=== PATIENT | female | born 1945 | race Caucasian/White ===

== ENCOUNTER 2016-08-23 07:00 | Emergency (ER) | payer MEDICARE ==
[2016-08-23] MEDS ORDERED: NORCO 5/325 MG PO ONE (07:29)
[2016-08-23] MEDS ORDERED: NORCO 5/325 MG ONE (07:33)
--- NOTE | 2016-08-23 07:33 | ERPHSYRPT ---
- History of Present Illness Time Seen by Provider: 08/23/16 07:25 Source: patient Patient Subjective Stated Complaint: pt states at 0530 she fell this morning in bathroom. pt c/o pain to left distal humerus and shoulder. pt denies any other injuries. Triage Nursing Assessment: pt pink, warm, dry. pt ambulated into ER without difficulty. bruise noted to left anterior upper arm. radial pulses strong. Physician History: CC: left arm pain Hx: 71 y/o pt of Dr Harsh Castellano fell this am around 5:30. She has periodic dizzy spells for quite some time. No blood thinners. She fell in the bathroom rushing to toilet. She hurt left shoulder and left upper arm. Bumped her cheek. No neck or back pain. No LOC. No headache. No N/T/W. The dizzy spell was typical for her. Pain is moderate and worse with movement. Timing/Duration: today Allergies/Adverse Reactions: latex Allergy (Mild, Verified 08/23/16 07:18) Itching adhesive Allergy (Verified 08/23/16 07:18) Rash ciprofloxacin [From Cipro] Allergy (Verified 08/23/16 07:18) codeine [Codeine] Allergy (Verified 08/23/16 07:18) stop breathing iodine Allergy (Verified 08/23/16 07:18) Home Medications: Albuterol 2.5 mg/3 ml Neb [Proventil 2.5 mg/3 ml Neb] 2.5 mg IH QID [History] Insulin Lispro [Humalog] 4 unit SQ TID 07/18/13 [History] Multivitamins,Therapeutic Tab* [Theragran Multivitamin] 1 tab PO DAILY [History] Prednisone 10 mg [Deltasone 10 mg] 10 mg PO DAILY 07/18/13 [History] Calcium Carb & Citrate/Vit D3 [Calcium + Vitamin D3 Caplet] 2 each PO DAILY [History] PANTOPRAZOLE 40 mg Tablet [Protonix 40MG Tablet] 40 mg PO DAILY 10/22/14 [ History] Lisinopril 10 mg [Zestril 10 MG] 10 mg PO DAILY 04/24/15 [History] Citalopram Hydrobromide 20 mg* [ceLEXa 20 MG] 5 mg PO DAILY 07/07/16 [History ] Hx Tetanus, Diphtheria Vaccination/Date Given: Yes (up to date) Hx Influenza Vaccination/Date Given: Yes Hx Pneumococcal Vaccination/Date Given: Yes Immunizations Up to Date: Yes - Review of Systems Constitutional: No Symptoms Eyes: No Symptoms Ears, Nose, & Throat: No Symptoms Respiratory: No Dyspnea Cardiac: No Chest Pain, No Syncope Abdominal/Gastrointestinal: No Abdominal Pain, No Nausea, No Vomiting Musculoskeletal: Fall, Injury (left upper arm), No Back Pain, No Neck Pain Neurological: Dizziness (periodic), No Focal Weakness, No Headache, No Parasthesia All Other Systems: Reviewed and Negative - Past Medical History Pertinent Past Medical History: Yes Neurological History: No Pertinent History ENT History: Other Cardiac History: Hypertension Respiratory History: COPD Endocrine Medical History: Diabetes Type I Musculoskeletal History: Arthritis, Bone Cancer, Other GI Medical History: Hernia History: Other Psycho-Social History: Anxiety, Depression Female Reproductive Disorders: No Pertinent History Other Medical History: Bone cancer - Past Surgical History Past Surgical History: Yes Neuro Surgical History: No Pertinent History Cardiac: No Pertinent History Respiratory: Lobectomy, Other Gastrointestinal: Appendectomy, Cholecystectomy Genitourinary: No Pertinent History Musculoskeletal: Other Female Surgical History: Tubal Ligation Other Surgical History: cyst on finger, ribs removed and kyphoplasty, vein stripping on left leg - Social History Smoking Status: Former smoker How long have you smoked: 42years Exposure to second hand smoke: No Drug Use: none Patient Lives Alone: No - Female History Hx Now: No - Nursing Vital Signs Nursing Vital Signs: Initial Vital Signs Temperature 98.5 F Temperature Source Oral Pulse Rate 73 Respiratory Rate 18 Blood Pressure 144/76 Pain Intensity 8 - Physical Exam General Appearance: alert Eye Exam: PERRL/EOMI Ears, Nose, Throat Exam: normal ENT inspection, moist mucous membranes, other ( small contusion left cheek without bony tenderness) Neck Exam: normal inspection, non-tender, supple, No midline tenderness Respiratory Exam: normal breath sounds, lungs clear Cardiovascular Exam: regular rate/rhythm, No murmur Gastrointestinal/Abdomen Exam: soft, No tenderness, No distention Back Exam: No vertebral tenderness Extremity Exam: tenderness (left shoulder and upper arm) Neurologic Exam: alert, oriented x 3, cooperative, sensation nml, No motor deficits Skin Exam: warm, dry, No rash SpO2 Interpretation: normal SpO2: 99 Oxygen Delivery: Nasal Cannula - Course Nursing assessment & vital signs reviewed: Yes - Radiology Exams left shoulder and humerus X-ray Interpretation: Reviewed by me, No Fracture, No Subluxation Ordered Tests: Active Orders 24 hr Category Date Time Status ACCUCHECK [Accucheck] STAT Care 08/23/16 08:12 Active Cold Application STAT Care 08/23/16 07:29 Active Sling Application STAT Care 08/23/16 07:29 Active HUMERUS Stat Exams 08/23/16 07:29 Taken SHOULDER Stat Exams 08/23/16 07:29 Taken Medication Summary Discontinued Medications Generic Name Dose Route Start Last Admin Trade Name Marcos PRN Reason Stop Dose Admin Acetaminophen/Hydrocodone Bitart 1 tab 08/23/16 07:29 08/23/16 07:39 [place] 5/325 Mg PO 08/23/16 07:30 1 tab STAT ONE Administration Acetaminophen/Hydrocodone Bitart Confirm 08/23/16 07:33 [place] 5/325 Mg Administered 08/23/16 07:34 Dose 1 tab .ROUTE .STK-MED ONE - Progress Progress Note: 08/23/16 08:11 No apparent fx. Will give short term sling and advise follow up. 08/23/16 08:15 Warned against long term care social worker sling. She has norco and ultram at home for pain. Counseled pt/family regarding: diagnosis, need for follow-up, rad results - Departure Time of Disposition: 08:16 Departure Disposition: Home Clinical Impression: Contusion of left shoulder Qualifiers: Encounter type: initial encounter Qualified Code(s): S40.012A - Contusion of left shoulder, initial encounter Condition: Stable Critical Care Time: No Referrals: RAJEEV CASTELLANO [Primary Care Provider] - Instructions: Prevent Falls, Contusion Additional Instructions: Use arm sling for 1-2 days. Follow up Wednesday with Dr Castellano. Use your ultram or norco as already directed for pain. Return for problems or concerns.
[2016-08-23 08:08] VITALS: BP 144/76; PULSE 73
[2016-08-23 08:12] VITALS: O2SAT 99
--- NOTE | 2016-08-23 09:23 | XRAY ---
Indication: Pain following fall. Comparison: August 12, 2016 3 views of the left shoulder unchanged again demonstrating mild osteopenia, minimal AC degenerative arthropathy, and partially visualized left Port-A-Cath. No new/acute abnormalities.
--- NOTE | 2016-08-23 09:25 | XRAY ---
Indication: Pain following fall. Comparison: August 12, 2016 2 views of the left humerus unchanged and intact again demonstrating mild osteopenia and partially visualized left Port-A-Cath. No new/acute abnormalities.
== END 2016-08-23 08:20 | disposition home or self-care (01) ==
LOC: ED 07:00
DX: S40.012A Contusion of left shoulder, initial encounter (principal); W01.0XXA Fall on same level from slipping, tripping and stumbling without subsequent striking against object, initial encounter; Y92.012 Bathroom of single-family (private) house as the place of occurrence of the external cause; E10.9 Type 1 diabetes mellitus without complications; I10 Essential (primary) hypertension; J44.9 Chronic obstructive pulmonary disease, unspecified
CPT/HCPCS: 73030; 73060; 82962; 99283

== ENCOUNTER 2016-09-01 16:39 | Emergency (ER) | payer MEDICARE ==
[2016-09-01] MEDS ORDERED: ULTRAM 50 MG PO ONE (17:31)
--- NOTE | 2016-09-01 17:38 | ERPHSYRPT ---
- History of Present Illness Time Seen by Provider: 09/01/16 17:30 Source: patient Exam Limitations: clinical condition Patient Subjective Stated Complaint: RIGHT SHOULDER/ARM PAIN, NECK PAIN. PT FELL WEDNESDAY AND CAME INTO THE ER. PT STATED"I AM DOING WHAT THEY TOLD ME TO DO BUT IT IS NOT HELPING I AM STILL IN PAIN." Triage Nursing Assessment: ALERT X 3. RESPIRATIONS NORMAL/NONLABORED, HAND LIBRARIAN SPECIALIST WEAK BUT EQUAL. LIMITED RANGE OF MOTION OF THE NECK TOWARDS THE LEFT SIDE AND LOOKING DOWN. LIMITED RANGE OF MOTION TO THE LEFT ARM. Physician History: PATIENT FELL AT HOME 2 WEEKS AGO SUSTAINED INJURY TO LEFT SHOULDER, HAS PERSISTENT PAIN, WORSE UPON RANGE OF MOTION. PATIENT BECAME DIZZY 4 DAYS AGO FELL AND RE-INJURED HER SHOULDER. DENIES ASSOCIATED HEAD, NECK AND BACK INJURY. PATIENT NOW COMPLAINS OF LEFT SIDED NECK PAIN, DENIES RADIATION OF PAIN DOWN HER ARM, NUMBNESS, TINGLING OR WEAKNESS IN EXTREMITIES. Occurred: days ago Reason for Fall: became dizzy Injuries/Pain Location: upper extremity Loss of Consciousness: no loss of consciousness Quality: throbbing Severity of Pain-Max: moderate Severity of Pain-Current: moderate Modifying Factors: Improves With: movement Associated Symptoms (Fall): neck pain Allergies/Adverse Reactions: latex Allergy (Mild, Verified 09/01/16 17:12) Itching adhesive Allergy (Verified 09/01/16 17:12) Rash ciprofloxacin [From Cipro] Allergy (Verified 09/01/16 17:12) codeine [Codeine] Allergy (Verified 09/01/16 17:12) stop breathing iodine Allergy (Verified 09/01/16 17:12) Home Medications: Albuterol 2.5 mg/3 ml Neb [Proventil 2.5 mg/3 ml Neb] 2.5 mg IH QID [History] Insulin Lispro [Humalog] 4 unit SQ TID 07/18/13 [History] Multivitamins,Therapeutic Tab* [Theragran Multivitamin] 1 tab PO DAILY [History] Prednisone 10 mg [Deltasone 10 mg] 10 mg PO DAILY 07/18/13 [History] Calcium Carb & Citrate/Vit D3 [Calcium + Vitamin D3 Caplet] 2 each PO DAILY [History] PANTOPRAZOLE 40 mg Tablet [Protonix 40MG Tablet] 40 mg PO DAILY 10/22/14 [ History] Lisinopril 10 mg [Zestril 10 MG] 10 mg PO DAILY 04/24/15 [History] Citalopram Hydrobromide 20 mg* [ceLEXa 20 MG] 5 mg PO DAILY 07/07/16 [History ] Cranberry Extract [Cranberry] 500 mg PO BID 09/01/16 [History] Hydrocodone Bit/Acetaminophen [Steele 5-325 Tablet] 1 each PO Q4HPRN PRN [History] Tramadol HCl 50 mg [Ultram 50 mg] 50 mg PO UD 09/01/16 [History] Hx Tetanus, Diphtheria Vaccination/Date Given: Yes Hx Influenza Vaccination/Date Given: Yes Hx Pneumococcal Vaccination/Date Given: Yes Immunizations Up to Date: Yes - Review of Systems Constitutional: No Fever, No Chills Eyes: No Symptoms Ears, Nose, & Throat: No Symptoms Respiratory: No Symptoms, No Cough, No Dyspnea Cardiac: No Symptoms, No Chest Pain, No Edema, No Syncope Abdominal/Gastrointestinal: No Abdominal Pain, No Nausea, No Vomiting, No Diarrhea Genitourinary Symptoms: No Symptoms, No Dysuria Musculoskeletal: Neck Pain, Injury, Joint Pain, No Back Pain Skin: No Symptoms, No Rash Neurological: No Dizziness, No Focal Weakness, No Sensory Changes Psychological: No Symptoms Endocrine: No Symptoms All Other Systems: Reviewed and Negative - Past Medical History Pertinent Past Medical History: Yes Neurological History: No Pertinent History ENT History: Other Cardiac History: Hypertension Respiratory History: COPD, Lung Cancer Endocrine Medical History: Diabetes Type I Musculoskeletal History: Arthritis, Bone Cancer, Other GI Medical History: Hernia History: Other Psycho-Social History: Anxiety, Depression Female Reproductive Disorders: No Pertinent History Other Medical History: Bone cancer 2012 (RIBS 7 RIB WALL) - Past Surgical History Past Surgical History: Yes Neuro Surgical History: No Pertinent History Cardiac: No Pertinent History Respiratory: Lobectomy, Other Gastrointestinal: Appendectomy, Cholecystectomy Genitourinary: No Pertinent History Musculoskeletal: Other Female Surgical History: Tubal Ligation Other Surgical History: cyst on finger, ribs removed and kyphoplasty, vein stripping on left leg, RIGHT UPPER LOBE REMOVED. - Social History Smoking Status: Former smoker How long have you smoked: 42years Exposure to second hand smoke: No Drug Use: none Patient Lives Alone: No - Female History Hx Now: No - Nursing Vital Signs Nursing Vital Signs: Initial Vital Signs Temperature 98.1 F Temperature Source Oral Pulse Rate 76 Respiratory Rate 16 Blood Pressure [Right Arm] 154/75 Pain Intensity 8 - Papi Coma Score Best Eye Response (Papi): (4) open spontaneously Best Verbal Response (Papi): (5) oriented Best Motor Response (Cascade): (6) obeys commands Cascade Total: 15 - Physical Exam General Appearance: no apparent distress, alert Head Injury: no evidence of injury Eye Exam: PERRL/EOMI ENT Exam: airway nml Neck Exam: supple, normal inspection, tender lateral (LEFT POST CERVICAL SPINAL TENDERNESS, RIGID CERVICAL COLLAR PLACED), No tenderness Respiratory/Chest Exam: normal breath sounds, No chest tenderness, No respiratory distress Cardiovascular Exam: normal heart sounds, regular rate/rhythm Gastrointestinal Exam: soft, normal bowel sounds, No tenderness, No distention, No guarding, No ecchymosis Back Exam: normal inspection, No vertebral tenderness Extremity Exam: normal inspection, pelvis stable, bony point tenderness (LEFT HUMERAL HEAD, NO ECCHYMOSIS), pain with movement, No deformities Peripheral Pulses: carotid (R): 2+, carotid (L): 2+, femoral (R): 2+, femoral (L ): 2+, dorsalis-pedis (R): 2+, dorsalis-pedis (L): 2+ Neurologic Exam: alert, oriented x 3, cooperative, sensation nml, No motor deficits Skin Exam: normal color, warm, dry SpO2 Interpretation: normal SpO2: 98 Oxygen Delivery: Nasal Cannula - Radiology Exams Left Shoulder X-ray Interpretation: Interpreted by me, Negative, No Fracture (NO DISLOCATION) Chest X-ray Interpretation: Interpreted by me (THE TIP OF LUCILLE CATH IN SVC, NO CHANGE IN POST SURGICAL DEFORMITY UPPER AND MID RIB CAGE, DIFFUSE INTERSTITIAL SCARRING NOTED) Ordered Tests: Active Orders 24 hr Category Date Time Status Cervical Collar Application STAT Care 09/01/16 17:38 Active CERVICAL SPINE WO CONTRAST [CT] Stat Exams 09/01/16 17:39 Taken CHEST 2 VIEWS (PA AND LAT) Stat Exams 09/01/16 17:34 Taken SHOULDER Stat Exams 09/01/16 17:31 Taken Medication Summary Discontinued Medications Generic Name Dose Route Start Last Admin Trade Name Marcos PRN Reason Stop Dose Admin Ketorolac Tromethamine 20 mg 09/01/16 17:40 09/01/16 17:47 Toradol 30 Mg Injection IM 09/01/16 17:41 20 mg STAT ONE Administration Ketorolac Tromethamine Confirm 09/01/16 17:45 Toradol 30 Mg Injection Administered 09/01/16 17:46 Dose 30 mg .ROUTE .STK-MED ONE Tramadol HCl 50 mg 09/01/16 17:31 09/01/16 17:47 Ultram 50 Mg PO 09/01/16 17:32 50 mg STAT ONE Administration Tramadol HCl Confirm 09/01/16 17:45 Ultram 50 Mg Administered 09/01/16 17:46 Dose 50 mg .ROUTE .STK-MED ONE - Progress Progress Note: 09/01/16 20:28 ULTRAM 50MG ORALLY, TORADOL 30MG IM WITH MODERATE PAIN RELIEF, Discussed with Dr.: Other (DIS[facility] AT [address] FINDING OF DIASTASES OF THE RIGHT FACET JOINT MASS C-5 C-6, NO FRACTURE IS IDENTIFIED. LIGAMENTOUS INJURY SHOULD BE CONSIDERED. RECOMMEND CERVICAL SPINE MRI TOMORROW) Counseled pt/family regarding: diagnosis, need for follow-up, rad results - Departure Time of Disposition: 20:40 Departure Disposition: Home Clinical Impression: ACUTE CERVICAL STRAIN, LEFT SHOULDER PAIN, CHRONIC Condition: Stable Critical Care Time: No Additional Instructions: CALL YOUR FAMILY PHYSICIAN TOMORROW FOR REVIEW OF MRI OF CERVICAL SPINE AND REFERRAL TO ORTHOPEDIC SURGEON FOR SHOULDER STEROID INJECTION. CUT YOUR NORCO 5/ 325 PILLS IN HALF AND TAKE EVERY 4 TO 6 HOURS NEEDED. ALSO ASK YOUR FAMILY PHYSICIAN FOR CONSIDERATION OF A FENTANYL PATCH.
[2016-09-01] MEDS ORDERED: TORAdol 30 mg Injection IM ONE (17:40)
[2016-09-01] MEDS ORDERED: TORAdol 30 mg Injection ONE (17:45)
[2016-09-01] MEDS ORDERED: ULTRAM 50 MG ONE (17:45)
[2016-09-01 19:14] VITALS: PULSE 76
[2016-09-01 19:54] VITALS: BP 154/75
[2016-09-01 20:27] VITALS: O2SAT 98
--- NOTE | 2016-09-02 08:50 | XRAY ---
Indication: Pain following fall 1 week ago. Comparison: March 04, 2016 PA/lateral chest demonstrates stable right hemithorax postsurgical changes and left-sided Port-A-Cath. No focal infiltrate, consolidation, large effusion, or pneumothorax. Heart is not enlarged. Bony thorax intact again with osteopenia and degenerative changes. There has been interval T12 kyphoplasty. Impression: Stable nonacute chest with chronic features.
--- NOTE | 2016-09-02 08:52 | XRAY ---
Indication: Pain following fall one week ago. Comparison: August 23, 2016 3 views of the left shoulder unchanged again demonstrating mild osteopenia, minimal AC degenerative arthropathy, and partially visualized left Port-A-Cath. No new/acute abnormalities.
--- NOTE | 2016-09-02 08:58 | XRAY ---
Indication: Left neck/shoulder pain following fall one week ago. Multiple contiguous axial images obtained through the cervical spine. Sagittal and coronal reformatted images obtained. Comparison: None Osseous structures demonstrates osteopenia. Axial images negative for acute fracture or suspicious bony lesions. Mild C4-C7 degenerative endplate spurring. Additional atlantoaxial degenerative changes. Mild right C2-C3 and right C4-C5 degenerative facet arthropathy. Sagittal and coronal reformatted images demonstrate lordotic straightening, positional versus paraspinal muscular spasm. C4-C7 degenerative disc space loss. No acute compression fracture, subluxation, or jumped facet. Normal-appearing craniocervical junction. Visualized noncontrasted soft tissues demonstrates mild carotid calcifications bilaterally and partially visualized left-sided Port-A-Cath. Impression: 1. Negative for acute fracture/subluxation. 2. Lordotic straightening, positional versus paraspinal spasm. 3. Osteopenia and multilevel degenerative changes. Comment: Preliminary interpretation was made by [facility]. No critical discrepancy. CT DI 210.08
== END 2016-09-01 20:46 | disposition home or self-care (01) ==
LOC: ED 16:39
DX: S16.1XXA Strain of muscle, fascia and tendon at neck level, initial encounter (principal); M25.512 Pain in left shoulder; G89.29 Other chronic pain; W19.XXXS Unspecified fall, sequela
CPT/HCPCS: 71020; 72125; 73030; 96372; 99283; J1885; L0172

== ENCOUNTER 2017-03-29 09:55 | Day surgery (SDC) | payer MEDICARE ==
--- NOTE | 2017-03-26 13:44 | HP ---
DATE OF SURGERY: 03/29/2017 HISTORY OF PRESENT ILLNESS: The patient is a 72 year-old with history of some rectal bleeding. She had some clots recently, occasionally happens with wiping after a bowel movement as well. She denies any prolapse or hemorrhoids. She denies any rectal pain currently. She is using some hemorrhoids pads and wipes at this time. Last colonoscopy several years ago. She had history of polyps then. No pain currently. PAST MEDICAL HISTORY: Chronic lung disease, diabetes. History of pulmonary embolism, emphysema, easy bruising, anxiety and depression. 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 MEDICATIONS: Breo Ellipta, calcium 600 plus vitamin D, vitamin B12, Debrox ear drops, diclofenac, citalopram, esterase, Humalog, ipratropium, Albuterol inhaler, ketorolac, lisinopril, Lorazepam, meclizine, melatonin, [place], ofloxacin eye drops, pantoprazole, prednisone, ropinirole, sulfamethoxazole, Symbicort, tizanidine, trazodone, triamcinolone cream, Ventolin. ALLERGIES: TAPE. CODEINE. FAMILY HISTORY: Cancer, diabetes, hypertension. SOCIAL HISTORY: No smoking or alcohol abuse. REVIEW OF SYSTEMS: Twelve systems reviewed per admission assessment. No chest pain or palpitations other systems negative or noncontributory as above and per preadmission questionnaire. PHYSICAL EXAMINATION: GENERAL: No acute distress. HEENT: Sclerae nonicteric. NECK: No JVD. CHEST: Equal excursion, nonlabored breathing. CVS: Regular rate and rhythm. ABDOMEN: Soft. No peritoneal signs. EXTREMITIES: No significant edema. NEURO: Alert, moving extremities grossly symmetrically currently. RECTAL: Deferred timed to endoscopy exam. She has history of hemorrhoid disease. She has been offered consideration of hemorrhoid banding but she declined that. She wants to proceed with colonoscopy for further evaluation. IMPRESSION: Rectal bleeding, prior history of polyps, colonoscopy several years ago. I feel she would benefit from colonoscopy for further evaluation. Risks and benefits explained in detail including but not limited to bleeding or infection, small risk of bowel injury or perforation possibly requiring open procedure, small risk of missed or nondiagnosis or incomplete exam possibly requiring barium enema, other studies or procedures, general risk of anesthesia or sedation but not limited to, postoperative risk of nausea or cramping but not limited to. She understands and agrees to the planned procedure. She had also been offered possible internal hemorrhoid banding but she called back and did not want the banding done at this time. She understands the general risk of bleeding, infection, risk of deeper infection possibly requiring other procedures, risk of progression of hemorrhoid disease possibly requiring other intervention or excisional therapy down the road, general risk of aches, pains but not limited to. She understands but she does not want any treatments regarding hemorrhoid disease at this time.
[~2017-03-29 09:55] MED LIST: Lactated Ringers 1,000 ML IV SCH
[2017-03-29] MEDS ORDERED: DIPRIVAN 200 MG/20 ML IV ONE (09:56)
[2017-03-29] MEDS ORDERED: Ketamine HCl 50 MG/ML IV ONE (09:56)
[2017-03-29 13:20] VITALS: O2SAT 99
[2017-03-29 13:43] VITALS: BP 145/86; PULSE 87
--- NOTE | 2017-03-30 08:19 | OP ---
SURGERY DATE/TIME: 03/29/2017 1108 PREOPERATIVE DIAGNOSIS: History of polyps. History of rectal bleeding. POSTOPERATIVE DIAGNOSES: Cecal polyp. 2) Ascending colon polyps. Raised lesion descending rectum/rectosigmoid colon and rectum. Diverticulosis. Small internal and external hemorrhoids. PROCEDURES: 1) Colonoscopy to cecum, hot snare polypectomy, cecal polyp. 2) Hot snare polypectomy of ascending colon polyp. 3) Hot biopsy piecemeal removal of sessile smaller ascending colon polyp. 4) Hot biopsy removal of small raised lesion versus hyperplastic lesion descending colon, rectosigmoid colon and rectum. SURGEON: Dr. Fernando Ni. ANESTHESIA: MAC. ESTIMATED BLOOD LOSS: Minimal. INDICATIONS: As noted above. Risks and benefits explained in detail but not limited to and consent obtained. DESCRIPTION OF PROCEDURE AND FINDINGS: The patient is taken to the operating room. MAC anesthesia was introduced. After official time out and no disagreement with planned procedure, digital rectal exam did not reveal any rectal masses. Video colonoscope inserted and passed up through the tortuous sigmoid, descending and transverse colon. The scope was able to be slowly and carefully with external pressure was able to be passed around to the right lower quadrant where the ileocecal valve and appendiceal orifice area were visualized with palpation at right lower quadrant. It should be noted there was a small polyp in this area retrieved with hot snare polypectomy elevating well away from the abdominal wall with brief bursts of cautery. Good hemostasis noted. The base appeared to be viable. Scope pulled back a few centimeters up in the ascending colon with longated 6 or 7 mm polyp removed with hot snare polypectomy with brief bursts of cautery. It took some time to get the snare into position to remove this but it was able to be snared and elevated well away from bowel wall with brief bursts of cautery removed this and it was retrieved through the suction trap and passed off. Across the lumen from this was more of a flat sessile polyp 4 mm in size this required removal in piecemeal fashion as it was too flat to simply snare. This was done with very brief bursts of cautery. Hemostasis was controlled and appeared to have good hemostasis. There was scant ooze at the base. The base appeared to be viable. Again these were both in the ascending colon just a few centimeters down from the cecum on palpation of the mid to lower, right lower quadrant confirming location. The scope is then carefully withdrawn. There was a little bit of liquidy stool that did limit the exam a little bit. It was suctioned and irrigated as well as possible. The scope is slowly and carefully withdrawn. In the descending colon and rectosigmoid colon and rectum there was small raised lesion versus hyperplastic lesion and these were removed with hot biopsy forceps with brief bursts of cautery. Good hemostasis is noted. She did have some diverticulosis. She did have some small internal and external hemorrhoids. There were no other sites of any large polyps, masses or obstructing lesions. We will await path results. If the path is benign with no dysplasia or carcinoma, she does have higher risk given sessile nature that she likely will need shorter term colonoscope to follow up possibly in a year or two pending path findings. Findings discussed with the family out in the waiting area.
== END 2017-03-29 13:50 | disposition home or self-care (01) ==
LOC: SDC 09:55
PROVIDERS: ATTEND Surgery
PROC: 0DBH8ZX Excision of Cecum, Via Natural or Artificial Opening Endoscopic, Diagnostic (ICD-10-PCS; principal; 2017-03-29)
PROC: 0DBK8ZX Excision of Ascending Colon, Via Natural or Artificial Opening Endoscopic, Diagnostic (ICD-10-PCS; 2017-03-29)
PROC: 0DBP8ZX Excision of Rectum, Via Natural or Artificial Opening Endoscopic, Diagnostic (ICD-10-PCS; 2017-03-29)
PROC: 0DBN8ZX Excision of Sigmoid Colon, Via Natural or Artificial Opening Endoscopic, Diagnostic (ICD-10-PCS; 2017-03-29)
PROC: 0DBM8ZX Excision of Descending Colon, Via Natural or Artificial Opening Endoscopic, Diagnostic (ICD-10-PCS; 2017-03-29)
DX: D12.0 Benign neoplasm of cecum (principal); D12.2 Benign neoplasm of ascending colon; Z86.010 Personal history of colon polyps; K63.9 Disease of intestine, unspecified; K57.90 Diverticulosis of intestine, part unspecified, without perforation or abscess without bleeding; K64.4 Residual hemorrhoidal skin tags; K64.8 Other hemorrhoids; E11.9 Type 2 diabetes mellitus without complications; J98.4 Other disorders of lung; Z86.711 Personal history of pulmonary embolism; F41.8 Other specified anxiety disorders; Z86.73 Personal history of transient ischemic attack (TIA), and cerebral infarction without residual deficits; Z79.899 Other long term (current) drug therapy
CPT/HCPCS: 00810; 36415; 82962; 88305; 99100; J1642; J2704

== ENCOUNTER 2017-12-14 10:47 | Emergency (ER) | payer MEDICARE ==
[2017-12-14 11:08] VITALS: BP 172/94; PULSE 76; O2SAT 98
--- NOTE | 2017-12-14 11:11 | ERPHSYRPT ---
- History of Present Illness Time Seen by Provider: 12/14/17 11:05 Source: patient, family Physician History: nose bleed today spontaneous start, stopped now, no injury, no coumadin, hx htn , hx nose bleeds, wears nasal oxygen, no headache, not dizzy Allergies/Adverse Reactions: latex Allergy (Mild, Verified 12/14/17 11:08) Itching adhesive Allergy (Verified 12/14/17 11:08) Rash codeine [Codeine] Allergy (Verified 12/14/17 11:08) stop breathing Home Medications: Atorvastatin Calcium [Lipitor] 10 mg PO DAILY 12/14/17 [History] Clopidogrel Bisulfate 75 mg [PLAVIX 75 MG Tablet] 75 mg PO DAILY 12/14/17 [History] Clopidogrel Bisulfate [Clopidogrel] 75 mg PO DAILY 12/14/17 [History] Escitalopram Oxalate [Lexapro] 20 mg PO DAILY 12/14/17 [History] Insulin Lispro [Humalog] 100 unit SQ UD 12/14/17 [History] Lisinopril [Lisinopril] 10 mg PO DAILY 12/14/17 [History] Lorazepam 0.5 mg [Ativan 0.5 MG] 0.5 mg PO BID 12/14/17 [History] PANTOPRAZOLE 40 mg Tablet [Protonix 40MG Tablet] 40 mg PO DAILY 12/14/17 [ History] Polymyxin B Sulf/Trimethoprim [Polymyxin B-Tmp Eye Drops] 1 drop TP UD 12/14/17 [History] Prednisone 10 mg [Deltasone 10 mg] 10 mg PO DAILY 12/14/17 [History] Primidone [Primidone] 12/14/17 [History] Primidone [Primidone] 50 mcg PO UD 12/14/17 [History] Topiramate [Topiramate] 25 mg PO BID 12/14/17 [History] Hx Tetanus, Diphtheria Vaccination/Date Given: Yes Hx Influenza Vaccination/Date Given: Yes Hx Pneumococcal Vaccination/Date Given: Yes - Review of Systems Constitutional: No Symptoms Eyes: No Eye Redness Ears, Nose, & Throat: Epistaxis Respiratory: No Cough Cardiac: No Chest Pain Abdominal/Gastrointestinal: No Abdominal Pain, No Vomiting Genitourinary Symptoms: No Vaginal Bleeding Musculoskeletal: No Neck Pain Neurological: No Dizziness, No Focal Weakness, No Headache, No Lethargy - Past Medical History Pertinent Past Medical History: Yes Neurological History: Peripheral Neuropathy ENT History: Cataracts, Other Cardiac History: Coronary Artery Disease, Hypertension Respiratory History: Asthma, Bronchitis, COPD, Emphysema, Lung Cancer, Other Endocrine Medical History: Diabetes Type II Musculoskeletal History: Arthritis, Osteoarthritis, Osteoporosis GI Medical History: Hernia History: Other Psycho-Social History: Anxiety, Depression Female Reproductive Disorders: No Pertinent History Other Medical History: Bone cancer 2013 (RIBS 7 RIB WALL). urinary frequency - Past Surgical History Past Surgical History: Yes Neuro Surgical History: No Pertinent History Cardiac: No Pertinent History, Cardiac Catheterization, Cardiac Stent Respiratory: Lobectomy, Other Gastrointestinal: Appendectomy, Cholecystectomy Genitourinary: No Pertinent History Musculoskeletal: Other Female Surgical History: Tubal Ligation Other Surgical History: cyst on finger, ribs removed and kyphoplasty, vein stripping on left leg, RIGHT UPPER LOBE REMOVED. - Social History Smoking Status: Former smoker How long have you smoked: 42years Exposure to second hand smoke: No Drug Use: none Patient Lives Alone: No - Nursing Vital Signs Nursing Vital Signs: Initial Vital Signs Temperature 97.5 F 12/14/17 10:59 Pulse Rate 76 12/14/17 10:59 Respiratory Rate 98 H 12/14/17 10:59 Blood Pressure 172/94 12/14/17 10:59 O2 Sat by Pulse Oximetry 98 12/14/17 10:59 Pain Scale Pain Intensity 0 - Physical Exam General Appearance: no apparent distress Eye Exam: PERRL/EOMI Ears, Nose, Throat Exam: pharynx normal, other (no septal hematoma or nasal clots seen) Neck Exam: normal inspection Respiratory Exam: normal breath sounds Cardiovascular Exam: regular rate/rhythm, normal heart sounds Gastrointestinal/Abdomen Exam: soft, No tenderness Extremity Exam: normal range of motion Neurologic Exam: alert, oriented x 3, cooperative Skin Exam: warm, dry - Course Nursing assessment & vital signs reviewed: Yes Ordered Tests: Active Orders 24 hr Category Date Time Status CBC W DIFF Stat Lab 12/14/17 11:18 Completed PROTIME WITH INR Stat Lab 12/14/17 11:18 Completed PTT Stat Lab 12/14/17 11:18 Completed Lab/Rad Data: Laboratory Result Diagrams 12/14/17 11:18 Laboratory Results 12/14/17 12/14/17 Range/Units 11:18 11:18 WBC 11.2 H (4.0-10.5) K/mm3 RBC 4.18 (4.1-5.4) M/mm3 Hgb 9.9 L (12.0-16.0) gm/dl Hct 32.7 L (35-47) % MCV 78.2 (78-100) fl MCH 23.6 L (26-32) pg MCHC 30.3 L (32-36) g/dl RDW 16.8 H (11.5-14.0) % Plt Count 309 (150-450) K/mm3 MPV 9.2 (6-9.5) fl Gran % 80.0 H (36.0-66.0) % Eos # (Auto) 0.45 (0-0.5) Absolute Lymphs (auto) 1.28 (1.0-4.6) Absolute Monos (auto) 0.48 (0.0-1.3) Lymphocytes % 11.4 L (24.0-44.0) % Monocytes % 4.3 (0.0-12.0) % Eosinophils % 4.0 (0.00-5.0) % Basophils % 0.3 (0.0-0.4) % Absolute Granulocytes 9.00 H (1.4-6.9) Basophils # 0.03 (0-0.4) PT 10.7 (9.95-12.35) SECONDS INR 0.92 (0.8-3.0) APTT 29.7 (25.3-37.0) SECONDS - Progress Progress: improved Progress Note: 12/14/17 12:12 differential d/w as cancer Counseled pt/family regarding: lab results, diagnosis, need for follow-up - Departure Time of Disposition: 12:12 Departure Disposition: Home Clinical Impression: Bleeding nose Condition: Stable Critical Care Time: No Referrals: RAJEEV CASTELLANO [Primary Care Provider] - Instructions: Nosebleeds (DC) Additional Instructions: see your doctor, return if worse
[2017-12-14 11:47] LABS: INR 0.92 (0.8-3.0)
[2017-12-14 11:50] LABS: PTT 29.7 SECONDS (25.3-37.0)
[2017-12-14 12:02] LABS: BASOPHIL % 0.3 % (0.0-0.4); Basophil (Absolute #) 0.03 (0-0.4); Eosinophil (Absolute #) 0.45 (0-0.5); Hematocrit 32.7 % (35-47); Hemoglobin 9.9 gm/dl (12.0-16.0); Lymphocyte (Absolute #) 1.28 (1.0-4.6); Lymphocytes % 11.4 % (24.0-44.0); Mean Cell Volume 78.2 fl (78-100); Mean Corpuscular Hgb Concent. 30.3 g/dl (32-36); Mean Platelet Volume 9.2 fl (6-9.5); Monocyte (Absolute #) 0.48 (0.0-1.3); Monocytes % 4.3 % (0.0-12.0); Platelet Count 309 K/mm3 (150-450); Red Blood Count 4.18 M/mm3 (4.1-5.4); Red Cell Distribution Width 16.8 % (11.5-14.0); White Blood Count 11.2 K/mm3 (4.0-10.5)
[2017-12-14 12:04] LABS: Mean Corpuscular Hemoglobin 23.6 pg (26-32)
== END 2017-12-14 12:26 | disposition home or self-care (01) ==
LOC: ED 10:47
DX: R04.0 Epistaxis (principal); Z79.01 Long term (current) use of anticoagulants; Z79.899 Other long term (current) drug therapy
CPT/HCPCS: 36415; 85025; 85610; 85730; 99283

== ENCOUNTER 2018-03-14 10:51 | Emergency (ER) | payer MEDICARE ==
--- NOTE | 2018-03-14 11:44 | ERPHSYRPT ---
- History of Present Illness Time Seen by Provider: 03/14/18 11:34 Source: patient, family Physician History: The patient is a 72-year-old female with her son brought in from home complaining that she slipped off a small stool while getting into bed yesterday evening. She fell onto the stool causing a small skin tear to her left arm. She also complains of pain in her left hip. She is able to walk but it hurts to do so. She did not hit her head nor did she lose consciousness. Her last tetanus vaccination was last year. Her past medical history is significant for COPD for which she uses supplemental home O2, diabetes, hypertension, peripheral vascular disease, osteoporosis, lung cancer, partial lung resections , and current chemotherapy for lung cancer. Occurred: yesterday Reason for Fall: slipped, fell from height Injuries/Pain Location: upper extremity (left arm), lower extremity (left hip) Loss of Consciousness: no loss of consciousness Quality: aching Severity of Pain-Max: moderate Severity of Pain-Current: moderate Modifying Factors: Improves With: nothing Associated Symptoms (Fall): trouble walking Allergies/Adverse Reactions: latex Allergy (Mild, Verified 12/14/17 11:08) Itching adhesive Allergy (Verified 12/14/17 11:08) Rash codeine [Codeine] Allergy (Verified 12/14/17 11:08) stop breathing Home Medications: Atorvastatin Calcium [Lipitor] 10 mg PO DAILY 12/14/17 [History] Clopidogrel Bisulfate 75 mg [PLAVIX 75 MG Tablet] 75 mg PO DAILY 12/14/17 [History] Escitalopram Oxalate [Lexapro] 20 mg PO DAILY 12/14/17 [History] Insulin Lispro [Humalog] 100 unit SQ UD 12/14/17 [History] Lisinopril 10 mg PO DAILY 12/14/17 [History] PANTOPRAZOLE 40 mg Tablet [Protonix 40MG Tablet] 40 mg PO DAILY 12/14/17 [ History] Polymyxin B Sulf/Trimethoprim [Polymyxin B-Tmp Eye Drops] 1 drop TP UD 12/14/17 [History] Prednisone 10 mg [Deltasone 10 mg] 10 mg PO DAILY 12/14/17 [History] Primidone 50 mcg PO UD 12/14/17 [History] Topiramate 25 mg PO BID 12/14/17 [History] Hx Tetanus, Diphtheria Vaccination/Date Given: Yes Hx Influenza Vaccination/Date Given: Yes Hx Pneumococcal Vaccination/Date Given: Yes - Review of Systems Constitutional: No Fever, No Chills Eyes: No Symptoms Ears, Nose, & Throat: No Symptoms Respiratory: No Cough, No Dyspnea Cardiac: No Chest Pain, No Edema, No Syncope Abdominal/Gastrointestinal: No Abdominal Pain, No Nausea, No Vomiting, No Diarrhea Genitourinary Symptoms: No Dysuria Musculoskeletal: Fall, Injury Skin: Skin Lesions, No Rash Neurological: No Dizziness, No Focal Weakness, No Sensory Changes Psychological: No Symptoms Endocrine: No Symptoms Hematologic/Lymphatic: No Symptoms Immunological/Allergic: No Symptoms All Other Systems: Reviewed and Negative - Past Medical History Pertinent Past Medical History: Yes Neurological History: Peripheral Neuropathy ENT History: Cataracts, Other Cardiac History: Coronary Artery Disease, Hypertension Respiratory History: Asthma, Bronchitis, COPD, Emphysema, Lung Cancer, Other Endocrine Medical History: Diabetes Type II Musculoskeletal History: Arthritis, Osteoarthritis, Osteoporosis GI Medical History: Hernia History: Other Psycho-Social History: Anxiety, Depression Female Reproductive Disorders: No Pertinent History Other Medical History: Bone cancer 2012 (RIBS 7 RIB WALL). urinary frequency - Past Surgical History Past Surgical History: Yes Neuro Surgical History: No Pertinent History Cardiac: No Pertinent History, Cardiac Catheterization, Cardiac Stent Respiratory: Lobectomy, Other Gastrointestinal: Appendectomy, Cholecystectomy Genitourinary: No Pertinent History Musculoskeletal: Other Female Surgical History: Tubal Ligation Other Surgical History: cyst on finger, ribs removed and kyphoplasty, vein stripping on left leg, RIGHT UPPER LOBE REMOVED. - Social History Smoking Status: Former smoker How long have you smoked: 42years Exposure to second hand smoke: No Drug Use: none Patient Lives Alone: No - Nursing Vital Signs Nursing Vital Signs: Initial Vital Signs Temperature 99.0 F 03/14/18 11:24 Pulse Rate 82 03/14/18 11:24 Respiratory Rate 24 03/14/18 11:24 O2 Sat by Pulse Oximetry 99 03/14/18 11:24 Pain Scale Pain Intensity 5 - [place] Coma Score Best Eye Response ([place]api): (4) open spontaneously Best Verbal Response ([place]): (5) oriented Best Motor Response ([place]): (6) obeys commands [place] Total: 15 - Physical Exam General Appearance: no apparent distress, alert Head Injury: no evidence of injury Eye Exam: PERRL/EOMI ENT Exam: airway nml Neck Exam: normal inspection, No tenderness Respiratory/Chest Exam: normal breath sounds, No chest tenderness, No respiratory distress Cardiovascular Exam: normal heart sounds, regular rate/rhythm Gastrointestinal Exam: soft, No tenderness, No distention, No guarding, No ecchymosis Rectal Exam: not done Back Exam: normal inspection, No vertebral tenderness Extremity Exam: limited range of motion (left hip), hip tenderness (left) Neurologic Exam: alert, oriented x 3, cooperative, sensation nml, No motor deficits Skin Exam: laceration (small skin tear to left forearm.) Oxygen Delivery: Nasal Cannula (4 L) - Radiology Exams Left Hip X-ray Interpretation: Reviewed by me, Teleradiologist Report (Per Dr Mohan), Negative, No Fracture, No Subluxation Ordered Tests: Active Orders 24 hr Category Date Time Status Wound Care STAT Care 03/14/18 11:53 Active HIP UNI (2V) INCL PEL IF DONE Stat Exams 03/14/18 11:54 Completed - Progress Progress: improved Counseled pt/family regarding: diagnosis, rad results - Departure Time of Disposition: 12:35 Departure Disposition: Home Clinical Impression: Fall, Contusion of left hip, Skin tear Condition: Stable Critical Care Time: No Referrals: [facility] [LOCATION] - Additional Instructions: You had a fall last night that caused a bruise to your left hip. You also had a small skin tear on her left forearm. The x-ray of your hip and pelvis was negative, showing no fracture. Take Tylenol as needed. Follow-up with your primary medical doctor as needed.
--- NOTE | 2018-03-14 12:24 | XRAY ---
Indication: Pain following fall. Comparison: None AP pelvis and 2 views of the left hip demonstrates mild osteopenia, scattered vascular calcifications, and bilateral iliac stent grafts. No other bony, articular, or soft tissue abnormalities.
[2018-03-14 13:15] VITALS: BP 140/70; PULSE 80; O2SAT 96
== END 2018-03-14 13:14 | disposition home or self-care (01) ==
LOC: ED 10:51
DX: S70.02XA Contusion of left hip, initial encounter (principal); S51.812A Laceration without foreign body of left forearm, initial encounter; W08.XXXA Fall from other furniture, initial encounter; Y93.89 Activity, other specified; Y92.003 Bedroom of unspecified non-institutional (private) residence as the place of occurrence of the external cause; Z79.01 Long term (current) use of anticoagulants; Z79.899 Other long term (current) drug therapy
CPT/HCPCS: 73502; 99283

== ENCOUNTER 2018-08-01 16:26 | Emergency (ER) | payer MEDICARE ==
--- NOTE | 2018-08-01 17:02 | ERPHSYRPT ---
- History of Present Illness Time Seen by Provider: 08/01/18 16:35 Historian: patient, family Exam Limitations: no limitations Physician History: 73 y/o diabetic white female with h/o htn and copd presents with sudden onset of right side abd pain and right flank pain. 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 never had these sx in the past. pt has known nephrolithiasis and h/o cancer in the past. denies cp , n/v/d. Timing/Duration: today Activities at Onset: none Quality: sharpness Abdominal Pain Onset Location: RUQ, RLQ, flank (right) Severity of Pain-Max: moderate Severity of Pain-Current: moderate Modifying Factors: Improves With: nothing. Worsens With: coughing, defecating, urinating, vomiting Associated Symptoms: back (right flank), No chest pain, No diarrhea, No headache , No loss of appetite, No nausea, No shortness of breath, No syncope, No vomiting Previous symptoms: no prior history Allergies/Adverse Reactions: latex Allergy (Mild, Verified 08/01/18 17:03) Itching adhesive Allergy (Verified 08/01/18 17:03) Rash codeine [Codeine] Allergy (Verified 08/01/18 17:03) stop breathing Home Medications: Atorvastatin Calcium [Lipitor] 10 mg PO DAILY 12/14/17 [History] Clopidogrel Bisulfate 75 mg [PLAVIX 75 MG Tablet] 75 mg PO DAILY 12/14/17 [History] Escitalopram Oxalate [Lexapro] 20 mg PO DAILY 12/14/17 [History] Insulin Lispro [Humalog] 4 unit SQ AC 12/14/17 [History] Lisinopril 10 mg PO DAILY 12/14/17 [History] PANTOPRAZOLE 40 mg Tablet [Protonix 40MG Tablet] 40 mg PO DAILY 12/14/17 [ History] Prednisone 10 mg [Deltasone 10 mg] 10 mg PO DAILY 12/14/17 [History] Albuterol 2.5 mg/3 ml Neb [Proventil 2.5 mg/3 ml Neb] 2.5 mg IH QID [History] Alprazolam 1 mg [Xanax 1 mg] 1 mg PO BID 08/01/18 [History] Calcium Carbonate/Vitamin D3 [Calcium 600 + Vit D Tablet] 1 each PO BID [History] Cimetidine [Tagamet Hb] 200 mg PO DAILY 08/01/18 [History] Cyanocobalamin 1000 Mcg/ml [Cyanocobalamin B-12 1000 MCG/ML] 1,000 mcg IJ UD 08/01/18 [History] Denosumab 60 mg [Prolia 60 mg Injection] 60 mg SQ UD 08/01/18 [History] Hydrocodone Bit/Acetaminophen [Hydrocodon-Acetaminophen 5-325] 1 each PO Q4HPRN PRN 08/01/18 [History] Multivit-Min/Iron/Folic/Lutein [Centrum Silver Women Tablet] 1 each PO DAILY [History] Hx Tetanus, Diphtheria Vaccination/Date Given: Yes Hx Influenza Vaccination/Date Given: Yes Hx Pneumococcal Vaccination/Date Given: Yes - Review of Systems Constitutional: No Symptoms Eyes: No Symptoms Ears, Nose, & Throat: No Symptoms Respiratory: No Symptoms Cardiac: No Symptoms Abdominal/Gastrointestinal: Abdominal Pain (right side ), No Nausea, No Vomiting , No Diarrhea Genitourinary Symptoms: No Symptoms, No Dysuria, No Hematuria Musculoskeletal: Back Pain (right flank) Skin: No Symptoms Neurological: No Symptoms Psychological: No Symptoms Endocrine: No Symptoms Hematologic/Lymphatic: No Symptoms Immunological/Allergic: No Symptoms All Other Systems: Reviewed and Negative - Past Medical History Pertinent Past Medical History: Yes Neurological History: Peripheral Neuropathy, Stroke ENT History: Cataracts, Other Cardiac History: Deep Vein Thrombosis, Hypertension Respiratory History: Asthma, Bronchitis, COPD, Emphysema Endocrine Medical History: Diabetes Type II Musculoskeletal History: Arthritis, Fractures GI Medical History: Hernia History: Other Psycho-Social History: Anxiety, Depression Female Reproductive Disorders: No Pertinent History Other Medical History: R lung cancer - Past Surgical History Past Surgical History: Yes Neuro Surgical History: No Pertinent History Cardiac: No Pertinent History, Cardiac Catheterization, Cardiac Stent Respiratory: Lobectomy, Other Gastrointestinal: Appendectomy, Cholecystectomy Genitourinary: No Pertinent History Musculoskeletal: Other Female Surgical History: Tubal Ligation Other Surgical History: cyst on finger, ribs removed and kyphoplasty, vein stripping on left leg, RIGHT UPPER LOBE REMOVED. - Social History Smoking Status: Former smoker How long have you smoked: 42years Exposure to second hand smoke: No Drug Use: none Patient Lives Alone: No - Nursing Vital Signs Nursing Vital Signs: Initial Vital Signs Temperature 98.7 F 08/01/18 16:35 Pulse Rate 78 08/01/18 16:35 Respiratory Rate 18 08/01/18 16:35 Blood Pressure 224/78 08/01/18 16:35 O2 Sat by Pulse Oximetry 99 08/01/18 16:35 Pain Scale Pain Intensity 0 - Physical Exam General Appearance: mild distress, alert, anxiety Eye Exam: PERRL/EOMI, eyes nml inspection Ears, Nose, Throat Exam: normal ENT inspection, moist mucous membranes Neck Exam: normal inspection, non-tender, supple, full range of motion Respiratory Exam: normal breath sounds, lungs clear, airway intact, No chest tenderness, No respiratory distress, No accessory muscle use, No rhonchi, No wheezing, No stridor Cardiovascular Exam: regular rate/rhythm, normal heart sounds, normal peripheral pulses Gastrointestinal/Abdomen Exam: soft, normal bowel sounds, tenderness (right side ), guarding, No pulsatile mass, No rebound Pelvic Exam: not done Rectal Exam: not done Back Exam: normal inspection, normal range of motion, CVA tenderness (right), No vertebral tenderness Extremity Exam: normal inspection, normal range of motion, pelvis stable Neurologic Exam: alert, oriented x 3, cooperative, 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 as tested Skin Exam: normal color, warm, dry Lymphatic Exam: No adenopathy SpO2 Interpretation: normal Oxygen Delivery: Room Air - Course Nursing assessment & vital signs reviewed: Yes Ordered Tests: Active Orders 24 hr Category Date Time Status IV Insertion STAT Care 08/01/18 17:04 Active ABDOMEN AND PELVIS W/0 CONTRAS [CT] Stat Exams 08/01/18 17:04 Taken AMYLASE Stat Lab 08/01/18 17:15 Completed CBC W DIFF Stat Lab 08/01/18 17:15 Completed CMP Stat Lab 08/01/18 17:15 Completed LIPASE Stat Lab 08/01/18 17:15 Completed Lactic Acid Stat Lab 08/01/18 17:04 Completed PROTIME WITH INR Stat Lab 08/01/18 17:15 Completed UA W/RFX UR CULTURE Stat Lab 08/01/18 17:15 Completed Medication Summary Discontinued Medications Generic Name Dose Route Start Last Admin Trade Name Freq PRN Reason Stop Dose Admin Sodium Chloride 1,000 mls @ 999 mls/hr 08/01/18 17:04 08/01/18 17:27 Sodium Chloride 0.9% 1000 Ml IV 08/01/18 18:04 999 mls/hr .Q1H1M STA Administration Sodium Chloride Confirm 08/01/18 17:18 Sodium Chloride 0.9% 1000 Ml Administered 08/01/18 17:19 Dose 1,000 mls @ ud .ROUTE .STK-MED ONE Morphine Sulfate 2 mg 08/01/18 17:04 08/01/18 17:26 Morphine Sulfate 2 Mg Inj IV 08/01/18 17:05 2 mg STAT ONE Administration Morphine Sulfate Confirm 08/01/18 17:18 Morphine Sulfate 2 Mg Inj Administered 08/01/18 17:19 Dose 2 mg .ROUTE .STK-MED ONE Ondansetron HCl 4 mg 08/01/18 17:04 08/01/18 18:01 Zofran Odt 4 Mg PO 08/01/18 17:05 Not Given STAT ONE Ondansetron HCl Confirm 08/01/18 17:18 Zofran 4 Mg/2 Ml Vial Administered 08/01/18 17:19 Dose 4 mg .ROUTE .STK-MED ONE Ondansetron HCl 4 mg 08/01/18 17:25 08/01/18 17:27 Zofran 4 Mg/2 Ml Vial IV 08/01/18 17:26 4 mg STAT ONE Administration Lab/Rad Data: Laboratory Result Diagrams 08/01/18 17:15 08/01/18 17:15 Laboratory Results 08/01/18 08/01/18 08/01/18 Range/Units 17:15 17:15 17:15 WBC (4.0-10.5) K/mm3 RBC (4.1-5.4) M/mm3 Hgb (12.0-16.0) gm/dl Hct (35-47) % MCV (78-100) fl MCH (26-32) pg MCHC (32-36) g/dl RDW (11.5-14.0) % Plt Count (150-450) K/mm3 MPV (6-9.5) fl Gran % (36.0-66.0) % Eos # (Auto) (0-0.5) Absolute Lymphs (auto) (1.0-4.6) Absolute Monos (auto) (0.0-1.3) Lymphocytes % (24.0-44.0) % Monocytes % (0.0-12.0) % Eosinophils % (0.00-5.0) % Basophils % (0.0-0.4) % Absolute Granulocytes (1.4-6.9) Basophils # (0-0.4) PT 11.1 (9.95-12.35) SECONDS INR 0.95 (0.8-3.0) Sodium 134 L (137-145) mmol/L Potassium 4.9 (3.5-5.1) mmol/L Chloride 100 (98-107) mmol/L Carbon Dioxide 32 H (22-30) mmol/L Anion Gap 7.6 (5-15) MEQ/L BUN 37 H (7-17) mg/dL Creatinine 0.88 (0.52-1.04) mg/dL Estimated GFR > 60.0 ML/MIN Glucose 269 H (74-106) mg/dL Lactic Acid (0.4-2.0) Calcium 8.8 (8.4-10.2) mg/dL Total Bilirubin 0.70 (0.2-1.3) mg/dL AST 123 H (14-36) U/L ALT 125 H (0-35) U/L Alkaline Phosphatase 81 (38-126) U/L Serum Total Protein 6.1 L (6.3-8.2) g/dL Albumin 2.8 L (3.5-5.0) g/dL Amylase 83 (30-110) U/L Lipase 133 (23-300) U/L Urine Color TOSHA (YELLOW) Urine Appearance CLEAR (CLEAR) Urine pH 5.0 (5-6) Ur Specific [place] 1.018 (1.005-1.025) Urine Protein NEGATIVE (Negative) Urine Ketones NEGATIVE (NEGATIVE) Urine Blood NEGATIVE (0-5) Johnathon/ul Urine Nitrite NEGATIVE (NEGATIVE) Urine Bilirubin NEGATIVE (NEGATIVE) Urine Urobilinogen NEGATIVE (0-1) mg/dL Ur Leukocyte Esterase NEGATIVE (NEGATIVE) Urine WBC (Auto) NONE (0-5) /HPF Urine RBC (Auto) NONE (0-2) /HPF U Hyaline Cast (Auto) 0-2 (0-2) /LPF U Epithel Cells (Auto) NONE (FEW) /HPF Urine Bacteria (Auto) NONE (NEGATIVE) /HPF Urine Mucus (Auto) SLIGHT (NEGATIVE) /HPF Urine Culture Reflexed NO (NO) Urine Glucose >=500 (NEGATIVE) mg/dL 08/01/18 08/01/18 Range/Units 17:15 17:04 WBC 5.8 (4.0-10.5) K/mm3 RBC 3.52 L (4.1-5.4) M/mm3 Hgb 12.1 (12.0-16.0) gm/dl Hct 37.3 (35-47) % MCV 106.0 H (78-100) fl MCH 34.3 H (26-32) pg MCHC 32.4 (32-36) g/dl RDW 13.5 (11.5-14.0) % Plt Count 120 L (150-450) K/mm3 MPV 10.9 H (6-9.5) fl Gran % 76.5 H (36.0-66.0) % Eos # (Auto) 0.05 (0-0.5) Absolute Lymphs (auto) 0.94 L (1.0-4.6) Absolute Monos (auto) 0.37 (0.0-1.3) Lymphocytes % 16.1 L (24.0-44.0) % Monocytes % 6.3 (0.0-12.0) % Eosinophils % 0.9 (0.00-5.0) % Basophils % 0.2 (0.0-0.4) % Absolute Granulocytes 4.47 (1.4-6.9) Basophils # 0.01 (0-0.4) PT (9.95-12.35) SECONDS INR (0.8-3.0) Sodium (137-145) mmol/L Potassium (3.5-5.1) mmol/L Chloride (98-107) mmol/L Carbon Dioxide (22-30) mmol/L Anion Gap (5-15) MEQ/L BUN (7-17) mg/dL Creatinine (0.52-1.04) mg/dL Estimated GFR ML/MIN Glucose (74-106) mg/dL Lactic Acid 1.4 (0.4-2.0) Calcium (8.4-10.2) mg/dL Total Bilirubin (0.2-1.3) mg/dL AST (14-36) U/L ALT (0-35) U/L Alkaline Phosphatase (38-126) U/L Serum Total Protein (6.3-8.2) g/dL Albumin (3.5-5.0) g/dL Amylase (30-110) U/L Lipase (23-300) U/L Urine Color (YELLOW) Urine Appearance (CLEAR) Urine pH (5-6) Ur Specific [place] (1.005-1.025) Urine Protein (Negative) Urine Ketones (NEGATIVE) Urine Blood (0-5) [place]/ul Urine Nitrite (NEGATIVE) Urine Bilirubin (NEGATIVE) Urine Urobilinogen (0-1) mg/dL Ur Leukocyte Esterase (NEGATIVE) Urine WBC (Auto) (0-5) /HPF Urine RBC (Auto) (0-2) /HPF U Hyaline Cast (Auto) (0-2) /LPF U Epithel Cells (Auto) (FEW) /HPF Urine Bacteria (Auto) (NEGATIVE) /HPF Urine Mucus (Auto) (NEGATIVE) /HPF Urine Culture Reflexed (NO) Urine Glucose (NEGATIVE) mg/dL - Progress Progress: improved, re-examined Progress Note: 08/01/18 19:04 pts sx competely resolved. no abd or flank pain. ct abd/pelvis-chronic changes. no acute processes. Counseled pt/family regarding: lab results, diagnosis, need for follow-up, rad results - Departure Time of Disposition: 19:06 Departure Disposition: Home Clinical Impression: Abdominal pain, Flank pain Condition: Stable Critical Care Time: No Referrals: RAJEEV CASTELLANO [Primary Care Provider] - Additional Instructions: drink plenty of fluids. take medications as prescribed. follow up with primary doctor for further management
[2018-08-01] MEDS ORDERED: Sodium Chloride 0.9% 1000 ML 1,000 ML IV STA (17:04)
[2018-08-01] MEDS ORDERED: ZOFRAN ODT 4 MG PO ONE (17:04)
[2018-08-01] MEDS ORDERED: MORPHINE SULFATE 2 MG INJ IV ONE (17:04)
[2018-08-01] MEDS ORDERED: Zofran 4 MG/2 ML VIAL ONE (17:18)
[2018-08-01] MEDS ORDERED: MORPHINE SULFATE 2 MG INJ ONE (17:18)
[2018-08-01] MEDS ORDERED: Sodium Chloride 0.9% 1000 ML 1,000 ML ONE (17:18)
[2018-08-01] MEDS ORDERED: Zofran 4 MG/2 ML VIAL IV ONE (17:25)
[2018-08-01 17:30] LABS: BASOPHIL % 0.2 % (0.0-0.4); Basophil (Absolute #) 0.01 (0-0.4); Eosinophil % 0.9 % (0.00-5.0); Eosinophil (Absolute #) 0.05 (0-0.5); Granulocyte Absolute (ANC) 4.47 (1.4-6.9); Granulocytes % 76.5 % (36.0-66.0); Hematocrit 37.3 % (35-47); Hemoglobin 12.1 gm/dl (12.0-16.0); Lymphocyte (Absolute #) 0.94 (1.0-4.6); Lymphocytes % 16.1 % (24.0-44.0); Mean Corpuscular Hgb Concent. 32.4 g/dl (32-36); Mean Platelet Volume 10.9 fl (6-9.5); Monocyte (Absolute #) 0.37 (0.0-1.3); Monocytes % 6.3 % (0.0-12.0); Platelet Count 120 K/mm3 (150-450); Red Blood Count 3.52 M/mm3 (4.1-5.4); Red Cell Distribution Width 13.5 % (11.5-14.0); White Blood Count 5.8 K/mm3 (4.0-10.5)
[2018-08-01 17:35] LABS: Appearance CLEAR (CLEAR); Bilirubin NEGATIVE (NEGATIVE); Blood NEGATIVE Ery/ul (0-5); Glucose >=500 mg/dL (NEGATIVE); Ketones NEGATIVE (NEGATIVE); Leukocyte Esterase NEGATIVE (NEGATIVE); Nitrite NEGATIVE (NEGATIVE); Protein,Urine Dip NEGATIVE (Negative); Specific Gravity 1.018 (1.005-1.025); Urobilinogen NEGATIVE mg/dL (0-1)
[2018-08-01 17:37] LABS: Mean Corpuscular Hemoglobin 34.3 pg (26-32)
[2018-08-01 17:41] LABS: INR 0.95 (0.8-3.0)
[2018-08-01 17:46] LABS: ALBUMIN 2.8 g/dL (3.5-5.0); ALKALINE PHOSPHATASE 81 U/L (38-126); AMYLASE 83 U/L (30-110); ANION GAP 7.6 MEQ/L (5-15); BLOOD UREA NITROGEN 37 mg/dL (7-17); CHLORIDE 100 mmol/L (98-107); Calcium 8.8 mg/dL (8.4-10.2); Carbon Dioxide 32 mmol/L (22-30); Creatinine 1 0.88 mg/dL (0.52-1.04); Glucose 269 mg/dL (74-106); LIPASE 133 U/L (23-300); Potassium 4.9 mmol/L (3.5-5.1); SGOT/AST 123 U/L (14-36); SGPT/ALT 125 U/L (0-35); SODIUM 134 mmol/L (137-145); Total Protein 6.1 g/dL (6.3-8.2)
[2018-08-01 18:37] VITALS: BP 126/66; PULSE 63; O2SAT 96
--- NOTE | 2018-08-01 22:26 | XRAY ---
Indication: Abdomen pain. Difficulty urinating. History kidney stones and chronic UTIs. Multiple contiguous axial images obtained through the abdomen and pelvis without contrast as ordered. Comparison: February 18, 2016. Lung bases again demonstrates fibrosis/scarring, subpleural cysts, 1.5 cm left base noncalcified nodule, and tiny right effusion. Heart is not enlarged. Stable small hiatal hernia. Noncontrasted stomach and bowel loops appear nonobstructed. Again previous reported appendectomy and cholecystectomy. No free fluid/air. Stable bilateral adrenal hypertrophy. Remaining liver, pancreas, spleen, adrenal glands, kidneys, ureters, bladder, and uterus appear unremarkable for noncontrast exam. Again heavy aortoiliac calcifications without AAA. Osseous structures again demonstrates mild multilevel degenerative changes and old right lower rib fractures. Interval T12/L3 kyphoplasty. Stable small fatty right inguinal hernia. Impression: 1. Stable bilateral adrenal hypertrophy, hiatal hernia, and fatty right inguinal hernia. 2. No new or acute intra-abdominal/pelvic abnormalities on this noncontrasted exam. 3. Stable bibasilar pulmonary fibrosis/scarring, tiny right effusion, and left lung base noncalcified nodule. Comment: Preliminary interpretation was made by [facility]. No critical discrepancy. CTDI 18.07
== END 2018-08-01 19:34 | disposition home or self-care (01) ==
LOC: ED 16:26
DX: R10.11 Right upper quadrant pain (principal); R10.31 Right lower quadrant pain; Z79.01 Long term (current) use of anticoagulants; Z79.899 Other long term (current) drug therapy; E11.9 Type 2 diabetes mellitus without complications; Z79.4 Long term (current) use of insulin; I10 Essential (primary) hypertension
CPT/HCPCS: 36000; 36415; 74176; 80053; 81001; 82150; 83605; 83690; 85025; 85610; 96360; 96374; 96375; 99284; J2270; J2405

== ENCOUNTER 2018-10-03 12:29 | Emergency (ER) | payer MEDICARE ==
[2018-10-03] MEDS ORDERED: MORPHINE SULFATE 4 MG INJ IV ONE (13:05)
--- NOTE | 2018-10-03 13:10 | ERPHSYRPT ---
- History of Present Illness Time Seen by Provider: 10/03/18 13:00 Source: patient Exam Limitations: no limitations Patient Subjective Stated Complaint: recurrent pain in right lower quadrant Triage Nursing Assessment: Pt c/o of reccurrent pain in right lower quadrant, rates pain 10/10, pain with palpatation, denies radiation, hypertensive, bowel sounds heard in all 4 quadrants, pulses normal, has been here before for the same problem and has seen other doctors and they thought they saw a mass but then they said that it wasn't, Physician History: 73-year-old white female arrives with complaint of right lower quadrant pain symptoms going on for 2 hours patient apparently has a history of recurrent right lower quadrant pain and has had several workups secondary to this she states that she's had a CT of the abdomen approximately 2 weeks ago patient without vomiting no diarrhea. Past medical history includes peripheral neuropathy, CVA, cataracts, diabetes type 2, asthma, bronchitis, COPD, emphysema, DVT, high blood pressure, hernia, arthritis, fractures, anxiety, depression, right lung cancer, and now left lung cancer. Past surgical history includes cataracts, lobe back to or, cardiac catheter, cardiac stents, appendectomy, cholecystectomy, tubal ligation, cysts on her fingers, kyphosis, vein stripping, right upper lung removed Social history denies tobacco alcohol or illicit drug use Timing/Duration: today (2 hours but occurs chronically.) Severity: moderate Modifying Factors: Improves With: nothing Associated Symptoms: abdominal pain (right lower quadrant abdominal pain), No nausea, No vomiting, No shortness of breath, No heartburn, No diaphoresis, No cough, No chills, No chest pain, No fever, No headaches, No loss of appetite, No malaise, No rash, No syncope, No seizure, No weakness Allergies/Adverse Reactions: latex Allergy (Mild, Verified 10/03/18 12:51) Itching adhesive Allergy (Verified 10/03/18 12:51) Rash Home Medications: Atorvastatin Calcium [Lipitor] 10 mg PO DAILY 12/14/17 [History] Clopidogrel Bisulfate 75 mg [PLAVIX 75 MG Tablet] 75 mg PO DAILY 12/14/17 [History] Escitalopram Oxalate [Lexapro] 20 mg PO DAILY 12/14/17 [History] Insulin Lispro [Humalog] 4 unit SQ AC 12/14/17 [History] Lisinopril 10 mg PO DAILY 12/14/17 [History] PANTOPRAZOLE 40 mg Tablet [Protonix 40MG Tablet] 40 mg PO DAILY 12/14/17 [ History] Prednisone 10 mg [Deltasone 10 mg] 10 mg PO DAILY 12/14/17 [History] Albuterol 2.5 mg/3 ml Neb [Proventil 2.5 mg/3 ml Neb] 2.5 mg IH QID [History] Alprazolam 1 mg [Xanax 1 mg] 1 mg PO BID 08/01/18 [History] Calcium Carbonate/Vitamin D3 [Calcium 600 + Vit D Tablet] 1 each PO BID [History] Cimetidine [Tagamet Hb] 200 mg PO DAILY 08/01/18 [History] Cyanocobalamin 1000 Mcg/ml [Cyanocobalamin B-12 1000 MCG/ML] 1,000 mcg IJ UD 08/01/18 [History] Denosumab 60 mg [Prolia 60 mg Injection] 60 mg SQ UD 08/01/18 [History] Hydrocodone Bit/Acetaminophen [Hydrocodon-Acetaminophen 5-325] 1 each PO Q4HPRN PRN 08/01/18 [History] Multivit-Min/Iron/Folic/Lutein [Centrum Silver Women Tablet] 1 each PO DAILY [History] Hx Tetanus, Diphtheria Vaccination/Date Given: Yes Hx Influenza Vaccination/Date Given: Yes Hx Pneumococcal Vaccination/Date Given: Yes - Review of Systems Constitutional: No Fever, No Chills Eyes: No Symptoms Ears, Nose, & Throat: No Symptoms Respiratory: No Cough, No Dyspnea Cardiac: No Chest Pain, No Edema, No Syncope Abdominal/Gastrointestinal: Abdominal Pain, No Nausea, No Vomiting, No Diarrhea , No Constipation, No Hematemesis, No Hematochezia, No Melena, No Dysphagia Genitourinary Symptoms: No Dysuria Musculoskeletal: No Back Pain, No Neck Pain Skin: No Rash Neurological: No Dizziness, No Focal Weakness, No Sensory Changes Psychological: No Symptoms Endocrine: No Symptoms All Other Systems: Reviewed and Negative - Past Medical History Pertinent Past Medical History: Yes Neurological History: Peripheral Neuropathy, Stroke ENT History: Cataracts, Other Cardiac History: Deep Vein Thrombosis, Hypertension Respiratory History: Asthma, Bronchitis, COPD, Emphysema Endocrine Medical History: Diabetes Type II Musculoskeletal History: Arthritis, Fractures GI Medical History: Hernia History: Other Psycho-Social History: Anxiety, Depression Female Reproductive Disorders: No Pertinent History Other Medical History: R lung cancer - Past Surgical History Past Surgical History: Yes Neuro Surgical History: No Pertinent History Cardiac: No Pertinent History, Cardiac Catheterization, Cardiac Stent Respiratory: Lobectomy, Other Gastrointestinal: Appendectomy, Cholecystectomy Genitourinary: No Pertinent History Musculoskeletal: Other Female Surgical History: Tubal Ligation Other Surgical History: cyst on finger, ribs removed and kyphoplasty, vein stripping on left leg, RIGHT UPPER LOBE REMOVED. - Social History Smoking Status: Former smoker How long have you smoked: 42years Exposure to second hand smoke: No Drug Use: none Patient Lives Alone: No - Nursing Vital Signs Nursing Vital Signs: Initial Vital Signs Temperature 97.8 F 10/03/18 12:36 Pulse Rate 72 10/03/18 12:36 Blood Pressure 162/111 10/03/18 12:36 O2 Sat by Pulse Oximetry 97 10/03/18 12:36 Pain Scale Pain Intensity 10 - Physical Exam General Appearance: mild distress, alert Eye Exam: PERRL/EOMI, eyes nml inspection Ears, Nose, Throat Exam: normal ENT inspection, TMs normal, pharynx normal, moist mucous membranes Neck Exam: normal inspection, non-tender, supple, full range of motion Respiratory Exam: normal breath sounds, lungs clear, No respiratory distress Cardiovascular Exam: regular rate/rhythm, normal heart sounds, normal peripheral pulses, capillary refill <2 sec Gastrointestinal/Abdomen Exam: soft, normal bowel sounds, tenderness (right lower quadrant tenderness) Back Exam: normal inspection, normal range of motion, No CVA tenderness, No vertebral tenderness Extremity Exam: normal inspection, normal range of motion, pelvis stable Neurologic Exam: alert, oriented x 3, 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 Endometrial cavity thickening as detailed (uterus demonstrates a 2 cm endometrial cavity thickening at the level of the fundus) pelvic ultrasound may yield further information. 2. Stable small hiatal hernia, small fatty right inguinal hernia, left adrenal hypertrophy, and scattered arterial sclerotic disease. 3. Remaining CT abdomen/pelvis without contrast exam is negative.) Ordered Tests: Active Orders 24 hr Category Date Time Status IV Insertion STAT Care 10/03/18 13:05 Active ABDOMEN AND PELVIS W/0 CONTRAS [CT] Stat Exams 10/03/18 14:26 Completed AMYLASE Stat Lab 10/03/18 13:40 Completed CBC W DIFF Stat Lab 10/03/18 13:40 Completed CMP Stat Lab 10/03/18 13:40 Completed LIPASE Stat Lab 10/03/18 13:40 Completed UA W/RFX UR CULTURE Stat Lab 10/03/18 13:40 Completed Medication Summary Generic Name Dose Route Start Last Admin Trade Name Freq PRN Reason Stop Dose Admin Sodium Chloride 1,000 mls @ 100 mls/hr 10/03/18 13:15 10/03/18 13:29 Sodium Chloride 0.9% 1000 Ml IV 11/02/18 13:14 100 mls/hr .Q10H PIPPA Administration Discontinued Medications Generic Name Dose Route Start Last Admin Trade Name Freq PRN Reason Stop Dose Admin Morphine Sulfate 4 mg 10/03/18 13:05 10/03/18 13:29 Morphine Sulfate 4 Mg Inj IV 10/03/18 13:06 4 mg STAT ONE Administration Morphine Sulfate Confirm 10/03/18 13:26 Morphine Sulfate 4 Mg Inj Administered 10/03/18 13:27 Dose 4 mg .ROUTE .[facility] ONE Lab/Rad Data: Laboratory Result Diagrams 10/03/18 13:40 10/03/18 13:40 Laboratory Results 10/03/18 10/03/18 10/03/18 Range/Units 13:40 13:40 13:40 WBC (4.0-10.5) K/mm3 RBC (4.1-5.4) M/mm3 Hgb (12.0-16.0) gm/dl Hct (35-47) % MCV (78-100) fl MCH (26-32) pg MCHC (32-36) g/dl RDW (11.5-14.0) % Plt Count (150-450) K/mm3 MPV (6-9.5) fl Gran % (36.0-66.0) % Eos # (Auto) (0-0.5) Absolute Lymphs (auto) (1.0-4.6) Absolute Monos (auto) (0.0-1.3) Lymphocytes % (24.0-44.0) % Monocytes % (0.0-12.0) % Eosinophils % (0.00-5.0) % Basophils % (0.0-0.4) % Absolute Granulocytes (1.4-6.9) Basophils # (0-0.4) Sodium 132 L (137-145) mmol/L Potassium 5.0 (3.5-5.1) mmol/L Chloride 97 L (98-107) mmol/L Carbon Dioxide 31 H (22-30) mmol/L Anion Gap 9.0 (5-15) MEQ/L BUN 33 H (7-17) mg/dL Creatinine 0.98 (0.52-1.04) mg/dL Estimated GFR 59.0 ML/MIN Glucose 273 H (74-106) mg/dL Calcium 9.0 (8.4-10.2) mg/dL Total Bilirubin 0.80 (0.2-1.3) mg/dL AST 158 H (14-36) U/L ALT 195 H (0-35) U/L Alkaline Phosphatase 80 (38-126) U/L Serum Total Protein 6.8 (6.3-8.2) g/dL Albumin 3.1 L (3.5-5.0) g/dL Amylase 98 (30-110) U/L Lipase 204 (23-300) U/L Urine Color YELLOW (YELLOW) Urine Appearance SLIGHTLY CLOUDY (CLEAR) Urine pH 5.0 (5-6) Ur Specific [place] 1.017 (1.005-1.025) Urine Protein NEGATIVE (Negative) Urine Ketones NEGATIVE (NEGATIVE) Urine Blood NEGATIVE (0-5) Johnathon/ul Urine Nitrite NEGATIVE (NEGATIVE) Urine Bilirubin NEGATIVE (NEGATIVE) Urine Urobilinogen NEGATIVE (0-1) mg/dL Ur Leukocyte Esterase NEGATIVE (NEGATIVE) Urine WBC (Auto) 0-2 (0-5) /HPF Urine RBC (Auto) NONE (0-2) /HPF U Epithel Cells (Auto) NONE (FEW) /HPF Urine Bacteria (Auto) NONE (NEGATIVE) /HPF Urine Mucus (Auto) SLIGHT (NEGATIVE) /HPF Urine Culture Reflexed NO (NO) Urine Glucose 50 (NEGATIVE) mg/dL 10/03/18 Range/Units 13:40 WBC 7.0 (4.0-10.5) K/mm3 RBC 3.67 L (4.1-5.4) M/mm3 Hgb 12.1 (12.0-16.0) gm/dl Hct 37.9 (35-47) % MCV 103.3 H (78-100) fl MCH 32.9 H (26-32) pg MCHC 31.9 L (32-36) g/dl RDW 14.5 H (11.5-14.0) % Plt Count 131 L (150-450) K/mm3 MPV 9.6 H (6-9.5) fl Gran % 75.5 H (36.0-66.0) % Eos # (Auto) 0.29 (0-0.5) Absolute Lymphs (auto) 0.96 L (1.0-4.6) Absolute Monos (auto) 0.43 (0.0-1.3) Lymphocytes % 13.7 L (24.0-44.0) % Monocytes % 6.1 (0.0-12.0) % Eosinophils % 4.1 (0.00-5.0) % Basophils % 0.6 (0.0-0.4) % Absolute Granulocytes 5.31 (1.4-6.9) Basophils # 0.04 (0-0.4) Sodium (137-145) mmol/L Potassium (3.5-5.1) mmol/L Chloride (98-107) mmol/L Carbon Dioxide (22-30) mmol/L Anion Gap (5-15) MEQ/L BUN (7-17) mg/dL Creatinine (0.52-1.04) mg/dL Estimated GFR ML/MIN Glucose (74-106) mg/dL Calcium (8.4-10.2) mg/dL Total Bilirubin (0.2-1.3) mg/dL AST (14-36) U/L ALT (0-35) U/L Alkaline Phosphatase (38-126) U/L Serum Total Protein (6.3-8.2) g/dL Albumin (3.5-5.0) g/dL Amylase (30-110) U/L Lipase (23-300) U/L Urine Color (YELLOW) Urine Appearance (CLEAR) Urine pH (5-6) Ur Specific [place] (1.005-1.025) Urine Protein (Negative) Urine Ketones (NEGATIVE) Urine Blood (0-5) Johnathon/ul Urine Nitrite (NEGATIVE) Urine Bilirubin (NEGATIVE) Urine Urobilinogen (0-1) mg/dL Ur Leukocyte Esterase (NEGATIVE) Urine WBC (Auto) (0-5) /HPF Urine RBC (Auto) (0-2) /HPF U Epithel Cells (Auto) (FEW) /HPF Urine Bacteria (Auto) (NEGATIVE) /HPF Urine Mucus (Auto) (NEGATIVE) /HPF Urine Culture Reflexed (NO) Urine Glucose (NEGATIVE) mg/dL - Progress Progress: improved Progress Note: 10/03/18 15:22 Patient is feeling better Labs essentially normal CT of the abdomen impression 1 endometrial cavity thickening as detailed. Pelvic sonogram may yield further information. 2. Stable small hiatal hernia, small fatty right inguinal hernia, left adrenal hypertrophy and scattered arterial sclerotic disease. [address] abdomen and pelvis without contrast is negative. Plan home plenty of fluids [place] every 6 hours as needed for pain. Follow-up with Dr. Cates. - Departure Time of Disposition: 16:08 Departure Disposition: Home Clinical Impression: Thickened endometrium Abdominal pain Qualifiers: Abdominal location: right lower quadrant Qualified Code(s): R10.31 - Right lower quadrant pain Condition: Fair Critical Care Time: No Referrals: VAL CATES [Primary Care Provider] - Additional Instructions: Return home.. Plenty of fluids. Clear fluids only 24-48 hours if abdominal pain. [place] 5/325 one orally every 6 hours as needed for pain. Follow-up with Dr. Cates. Return for acute distress or for severe symptoms. Prescriptions: Hydrocodone/APAP 5-325 Tab^^^ [[place] 5-325 Tablet^^^] 1 tab PO Q6HPRN PRN #10 tablet MDD 6 PRN Reason: Pain
[2018-10-03] MEDS ORDERED: Sodium Chloride 0.9% 1000 ML 1,000 ML IV SCH (13:15)
[2018-10-03] MEDS ORDERED: Sodium Chloride 0.9% 1000 ML 1,000 ML ONE (13:26)
[2018-10-03] MEDS ORDERED: MORPHINE SULFATE 4 MG INJ ONE (13:26)
[2018-10-03 13:46] LABS: BASOPHIL % 0.6 % (0.0-0.4); Basophil (Absolute #) 0.04 (0-0.4); Eosinophil % 4.1 % (0.00-5.0); Eosinophil (Absolute #) 0.29 (0-0.5); Granulocyte Absolute (ANC) 5.31 (1.4-6.9); Granulocytes % 75.5 % (36.0-66.0); Hematocrit 37.9 % (35-47); Hemoglobin 12.1 gm/dl (12.0-16.0); Lymphocyte (Absolute #) 0.96 (1.0-4.6); Lymphocytes % 13.7 % (24.0-44.0); Mean Cell Volume 103.3 fl (78-100); Mean Corpuscular Hgb Concent. 31.9 g/dl (32-36); Mean Platelet Volume 9.6 fl (6-9.5); Monocyte (Absolute #) 0.43 (0.0-1.3); Monocytes % 6.1 % (0.0-12.0); Platelet Count 131 K/mm3 (150-450); Red Blood Count 3.67 M/mm3 (4.1-5.4); Red Cell Distribution Width 14.5 % (11.5-14.0)
[2018-10-03 13:49] LABS: Appearance SLIGHTLY CLOUDY (CLEAR); Bilirubin NEGATIVE (NEGATIVE); Blood NEGATIVE Ery/ul (0-5); Glucose 50 mg/dL (NEGATIVE); Ketones NEGATIVE (NEGATIVE); Leukocyte Esterase NEGATIVE (NEGATIVE); Mucus SLIGHT /HPF (NEGATIVE); Nitrite NEGATIVE (NEGATIVE); Protein,Urine Dip NEGATIVE (Negative); Specific Gravity 1.017 (1.005-1.025); Urobilinogen NEGATIVE mg/dL (0-1); WBC 0-2 /HPF (0-5)
[2018-10-03 13:51] LABS: Mean Corpuscular Hemoglobin 32.9 pg (26-32)
[2018-10-03 13:57] LABS: ALBUMIN 3.1 g/dL (3.5-5.0); BILIRUBIN,TOTAL 0.8 mg/dL (0.2-1.3); Creatinine 1 0.98 mg/dL (0.52-1.04); Total Protein 6.8 g/dL (6.3-8.2)
[2018-10-03 14:50] VITALS: BP 144/58; PULSE 65
--- NOTE | 2018-10-03 15:11 | XRAY ---
Indication: Right lower quadrant pain. Nausea and vomiting. Multiple contiguous axial images obtained through the abdomen and pelvis without contrast as ordered. Comparison: August 01, 2018. Lung bases again demonstrates scattered fibrosis/scarring, subpleural cysts, 1.5 cm left base noncalcified nodule, tiny right effusion, and small hiatal hernia. Heart is not enlarged. Noncontrasted stomach and bowel loops appear nonobstructed. Patient again reports appendectomy and cholecystectomy. No free fluid/air. Stable left adrenal hypertrophy. Uterus demonstrates 2 cm endometrial cavity thickening at the level of the fundus. Remaining liver, pancreas, spleen, adrenal glands, kidneys, ureters, and bladder appear unremarkable for noncontrast exam. There remains heavy scattered aortoiliac calcifications without AAA. Osseous structures intact again with degenerative changes throughout the spine, old right lower rib fractures, and T12/L3 kyphoplasty. Stable small fatty right inguinal hernia. Impression: 1. Endometrial cavity thickening as detailed. Pelvic sonogram may yield further information. 2. Stable small hiatal hernia, small fatty right inguinal hernia, left adrenal hypertrophy, and scattered arteriosclerotic disease. 3. Remaining CT abdomen/pelvis without contrast exam is negative. CT DI 22.72
[2018-10-03 15:19] VITALS: O2SAT 97
== END 2018-10-03 16:34 | disposition home or self-care (01) ==
LOC: ED 12:29
DX: N85.00 Endometrial hyperplasia, unspecified (principal); R10.31 Right lower quadrant pain; J45.909 Unspecified asthma, uncomplicated; J44.9 Chronic obstructive pulmonary disease, unspecified; E11.9 Type 2 diabetes mellitus without complications; Z86.73 Personal history of transient ischemic attack (TIA), and cerebral infarction without residual deficits; G62.9 Polyneuropathy, unspecified; Z86.718 Personal history of other venous thrombosis and embolism; I10 Essential (primary) hypertension; F41.0 Panic disorder [episodic paroxysmal anxiety]; F32.9 Major depressive disorder, single episode, unspecified; Z85.118 Personal history of other malignant neoplasm of bronchus and lung; Z79.899 Other long term (current) drug therapy
CPT/HCPCS: 36000; 36415; 74176; 80053; 81001; 82150; 83690; 85025; 96360; 96374; 99284; J1642; J2270

== ENCOUNTER 2019-06-21 15:18 | Emergency (ER) | payer MEDICARE ==
--- NOTE | 2019-06-21 15:28 | ERPHSYRPT ---
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 pt scraped top of left foot on metal portion of oxygen tank. has a skin tear. tetanus status utd. no fall. Method of Injury: other (scraped left foot ) Occurred: hours ago (2) Quality: burning (mild) Severity of Pain-Max: mild Severity of Pain-Current: mild Lower Extremities Pain: foot: left Associated Symptoms: none Allergies/Adverse Reactions: latex Allergy (Mild, Verified 10/03/18 12:51) Itching adhesive Allergy (Verified 10/03/18 12:51) Rash Home Medications: Atorvastatin Calcium [Lipitor] 10 mg PO DAILY 12/14/17 [History] Clopidogrel Bisulfate 75 mg [PLAVIX 75 MG Tablet] 75 mg PO DAILY 12/14/17 [History] Escitalopram Oxalate [Lexapro] 20 mg PO DAILY 12/14/17 [History] Insulin Lispro [Humalog] 4 unit SQ AC 12/14/17 [History] Lisinopril 10 mg PO DAILY 12/14/17 [History] PANTOPRAZOLE 40 mg Tablet [Protonix 40MG Tablet] 40 mg PO DAILY 12/14/17 [ History] Prednisone 10 mg [Deltasone 10 mg] 10 mg PO DAILY 12/14/17 [History] Albuterol 2.5 mg/3 ml Neb [Proventil 2.5 mg/3 ml Neb] 2.5 mg IH QID [History] Alprazolam 1 mg [Xanax 1 mg] 1 mg PO BID 08/01/18 [History] Calcium Carbonate/Vitamin D3 [Calcium 600 + Vit D Tablet] 1 each PO BID [History] Cimetidine [Tagamet Hb] 200 mg PO DAILY 08/01/18 [History] Cyanocobalamin 1000 Mcg/ml [Cyanocobalamin B-12 1000 MCG/ML] 1,000 mcg IJ UD 08/01/18 [History] Denosumab 60 mg [Prolia 60 mg Injection] 60 mg SQ UD 08/01/18 [History] Hydrocodone Bit/Acetaminophen [Hydrocodon-Acetaminophen 5-325] 1 each PO Q4HPRN PRN 08/01/18 [History] Multivit-Min/Iron/Folic/Lutein [Centrum Silver Women Tablet] 1 each PO DAILY [History] Cranberry Extract [Cranberry] 425 mg PO BID 02/10/19 [History] Levothyroxine Sodium 50 Mcg [Synthroid 50 Mcg] 50 mcg PO DAILY 02/10/19 [ History] Loperamide HCl 2 mg [Imodium 2 mg] 2 mg PO UD 02/10/19 [History] Prochlorperazine Maleate 10 mg [Compazine 10 mg] 10 mg PO BIDPRN PRN 02/10/19 [ History] Hx Tetanus, Diphtheria Vaccination/Date Given: Yes Hx Influenza Vaccination/Date Given: Yes Hx Pneumococcal Vaccination/Date Given: Yes - Review of Systems Constitutional: No Symptoms Eyes: No Symptoms Ears, Nose, & Throat: No Symptoms Respiratory: No Symptoms Cardiac: No Symptoms Abdominal/Gastrointestinal: No Symptoms Genitourinary Symptoms: No Symptoms Musculoskeletal: No Symptoms Skin: Other (abrasion skin tear top of left foot.) Neurological: No Symptoms Psychological: No Symptoms Endocrine: No Symptoms Hematologic/Lymphatic: No Symptoms Immunological/Allergic: No Symptoms All Other Systems: Reviewed and Negative - Past Medical History Pertinent Past Medical History: Yes Neurological History: Peripheral Neuropathy, Stroke ENT History: Cataracts, Other Cardiac History: Aneurysm, Congestive Heart Failure, Peripheral Vascular Disease Respiratory History: Asthma, Bronchitis, CHF, COPD, Emphysema, Lung Cancer Endocrine Medical History: Diabetes Type II Musculoskeletal History: Bone Cancer, Fractures, Osteoarthritis GI Medical History: Hernia History: Other Psycho-Social History: Anxiety, Depression Female Reproductive Disorders: No Pertinent History Other Medical History: LOBECTOMY AND 3 RIBS EXCISED, LYMPH NODES ALSO REMOVED; SHE JUST FININSHED [address] [place] AORTIC ANEURYSM, - Past Surgical History Past Surgical History: Yes Neuro Surgical History: No Pertinent History Cardiac: Cardiac Catheterization Respiratory: Lobectomy, Other Gastrointestinal: Appendectomy, Cholecystectomy Genitourinary: No Pertinent History Musculoskeletal: Other Female Surgical History: Tubal Ligation Other Surgical History: cyst on finger, ribs removed and kyphoplasty, vein stripping on left leg with stenting both legs, RIGHT UPPER LOBE REMOVED. - Social History Smoking Status: Former smoker How long have you smoked: 42years Exposure to second hand smoke: No Drug Use: none Patient Lives Alone: No - Nursing Vital Signs Nursing Vital Signs: Initial Vital Signs Temperature 97.8 F 06/21/19 15:28 Pulse Rate 82 06/21/19 15:28 Respiratory Rate 18 06/21/19 15:28 Blood Pressure 133/83 06/21/19 15:28 O2 Sat by Pulse Oximetry 98 06/21/19 15:28 Pain Scale Pain Intensity 6 - Physical Exam General Appearance: no apparent distress, alert, anxiety Eyes, Ears, Nose, Throat Exam: normal ENT inspection, moist mucous membranes Neck Exam: normal inspection, non-tender, supple, full range of motion Cardiovascular/Respiratory Exam: chest non-tender Gastrointestinal/Abdominal Exam: non-tender Back Exam: normal inspection, normal range of motion, No CVA tenderness, No vertebral tenderness Hips Exam: bilateral: non-tender, normal inspection, normal range of motion, no evidence of injury Legs Exam: bilateral leg: non-tender, normal inspection, normal range of motion , no evidence of injury Knees Exam: bilateral knee: non-tender, normal inspection, normal range of motion, no evidence of injury Ankle Exam: bilateral ankle: non-tender, normal inspection, normal range of motion, no evidence of injury Foot Exam: right foot: non-tender, normal inspection, normal range of motion, no evidence of injury, left foot: other (dorsum left foot with abrasion and skin tear) Neuro/Tendon Exam: normal sensation, normal motor functions, normal tendon functions, responds to pain Mental Status Exam: alert, oriented x 3, cooperative Skin Exam: abrasion, other (skin tear left foot dorsal aspect) SpO2 Interpretation: normal O2 Delivery: Room Air - Course Nursing assessment & vital signs reviewed: Yes - Progress Progress: improved Progress Note: 06/21/19 16:00 procedure note: dorsal aspect of left foot prepped with hibiclens saline solution. dried. benzoin and steristrips applied by rn and bandage. no complications. pt raj well. Counseled pt/family regarding: diagnosis, need for follow-up - Departure Departure Disposition: Home Clinical Impression: Skin tear of left lower leg without complication Condition: Stable Critical Care Time: No Referrals: VAL MCCABE [Primary Care Provider] - Additional Instructions: keep site dry for 24 hours. after 24 hours, may wash daily. leave steristrips in place until they fall off. Prescriptions: Cephalexin Mh 500 mg [Keflex 500 mg] 500 mg PO TID #21 capsule
[2019-06-21 16:25] VITALS: BP 138/78; PULSE 78; O2SAT 94
== END 2019-06-21 16:32 | disposition home or self-care (01) ==
LOC: ED 15:18
DX: S81.812A Laceration without foreign body, left lower leg, initial encounter (principal); S91.312A Laceration without foreign body, left foot, initial encounter; W22.8XXA Striking against or struck by other objects, initial encounter; Y93.89 Activity, other specified; Z99.81 Dependence on supplemental oxygen; Z79.899 Other long term (current) drug therapy; G62.9 Polyneuropathy, unspecified; I50.9 Heart failure, unspecified; J44.9 Chronic obstructive pulmonary disease, unspecified; J45.909 Unspecified asthma, uncomplicated; Z85.118 Personal history of other malignant neoplasm of bronchus and lung; E11.9 Type 2 diabetes mellitus without complications
CPT/HCPCS: 99283

== ENCOUNTER 2019-07-12 10:22 | Inpatient (IN) | payer MEDICARE ==
--- NOTE | 2019-07-12 11:08 | ERPHSYRPT ---
- History of Present Illness Time Seen by Provider: 07/12/19 10:30 Source: patient Exam Limitations: clinical condition, physical impairment, other (Pt not remembering some details maybe 30-40 %. ) Patient Subjective Stated Complaint: pt here for a fall, she was found by home health care and was placed chair, she is unsre how she fell but falls frequently ,uses a walker at home , there are concerns that she and her might not be able to care for self at home.she states [facility] and that her daughter checks on her as well as home health Triage Nursing Assessment: pt alert, confused to date and time, deines any loc, resp easy, chest with wheezes , legs and arms with purple bruising, pt states are old, she has abrasion to left middle finger, has decub to left foot that is old and getting treatment, moves all ext, o2 at 2 l nc as per home. hips tender Physician History: Pt fell at home last night and was unable to get up. was at home but not able to help her. Home health aid came this morning and found the pt on the floor as well as her . Pt is having pain in her left foot, left hip and upper leg, left shoulder and left hand. Pt isn't sure what made her fall but does say that she was on the floor all night. Pt notes that she has diabetes, HTN, Hypercholesterolemia, and COPD. Pt did not mention that she has lung ancer and a recent UTI. Occurred: hours ago Reason for Fall: unknown Injuries/Pain Location: upper extremity, pelvis, lower extremity Loss of Consciousness: no loss of consciousness, unsure, memory impairment Quality: aching Severity of Pain-Max: moderate Associated Symptoms (Fall): back pain, dizziness, extremity injury, shortness of breath, trouble walking Allergies/Adverse Reactions: latex Allergy (Mild, Verified 10/03/18 12:51) Itching adhesive Allergy (Verified 10/03/18 12:51) Rash Home Medications: Clopidogrel Bisulfate 75 mg [PLAVIX 75 MG Tablet] 0.5 tab PO DAILY [History] Escitalopram Oxalate [Lexapro] 20 mg PO DAILY 12/14/17 [History] Insulin Lispro [Humalog] 4 unit SQ AC 12/14/17 [History] Lisinopril 10 mg PO DAILY 12/14/17 [History] PANTOPRAZOLE 40 mg Tablet [Protonix 40MG Tablet] 40 mg PO DAILY 12/14/17 [ History] Prednisone 10 mg [Deltasone 10 mg] 10 mg PO DAILY 12/14/17 [History] Albuterol 2.5 mg/3 ml Neb [Proventil 2.5 mg/3 ml Neb] 2.5 mg IH QID [History] Alprazolam 1 mg [Xanax 1 mg] 1 mg PO BID PRN 08/01/18 [History] Calcium Carbonate/Vitamin D3 [Calcium 600 + Vit D Tablet] 1 each PO BID [History] Cyanocobalamin 1000 Mcg/ml [Cyanocobalamin B-12 1000 MCG/ML] 1,000 mcg IJ UD 08/01/18 [History] Cranberry Extract [Cranberry] 500 mg PO BID 02/10/19 [History] Levothyroxine Sodium 50 Mcg [Synthroid 50 Mcg] 50 mcg PO DAILY 02/10/19 [ History] Loperamide HCl 2 mg [Imodium 2 mg] 2 mg PO UD 02/10/19 [History] Prochlorperazine Maleate 10 mg [Compazine 10 mg] 10 mg PO BID 02/10/19 [History] Nonformulary 1 tab PO Q6H PRN PRN 07/12/19 [History] Ropinirole HCl 1 mg PO HS 07/12/19 [History] Hx Tetanus, Diphtheria Vaccination/Date Given: No Hx Influenza Vaccination/Date Given: No Hx Pneumococcal Vaccination/Date Given: No Immunizations Up to Date: Yes - Review of Systems Constitutional: Weakness Eyes: Discharge Ears, Nose, & Throat: No Symptoms Respiratory: No Symptoms Cardiac: No Symptoms Abdominal/Gastrointestinal: No Symptoms Genitourinary Symptoms: Dysuria, Other (recent urinary tract infection) Musculoskeletal: Joint Pain (left shoulder, left hip and right hip and left foot , and pelvis and left hand.) Skin: Skin Lesions (ulceration to the dorsal left foot, not new but bleeding since fall.) Neurological: Dizziness, Gait Changes, Irritability (confusion per daughter.) Psychological: Memory Loss Endocrine: No Symptoms All Other Systems: Reviewed and Negative (some confusion), Unable due to dementia (pt confused but accurate on somethings) - Past Medical History Pertinent Past Medical History: Yes Neurological History: Peripheral Neuropathy, Stroke ENT History: Cataracts, Other Cardiac History: Aneurysm, Congestive Heart Failure, Peripheral Vascular Disease Respiratory History: Asthma, Bronchitis, CHF, COPD, Emphysema, Lung Cancer Endocrine Medical History: Diabetes Type II Musculoskeletal History: Bone Cancer, Fractures, Osteoarthritis GI Medical History: Hernia History: Other Psycho-Social History: Anxiety, Depression Female Reproductive Disorders: No Pertinent History Other Medical History: LOBECTOMY AND 3 RIBS EXCISED, LYMPH NODES ALSO REMOVED; SHE JUST FININSHED [address] [place] AORTIC ANEURYSM, - Past Surgical History Past Surgical History: Yes Neuro Surgical History: No Pertinent History Cardiac: Cardiac Catheterization Respiratory: Lobectomy, Other Gastrointestinal: Appendectomy, Cholecystectomy Genitourinary: No Pertinent History Musculoskeletal: Other Female Surgical History: Tubal Ligation Other Surgical History: cyst on finger, ribs removed and kyphoplasty, vein stripping on left leg with stenting both legs, RIGHT UPPER LOBE REMOVED. - Social History Smoking Status: Former smoker How long have you smoked: 42years Exposure to second hand smoke: No Drug Use: none Patient Lives Alone: No - Female History Hx Last Menstrual Period: post Hx Now: No (N) - Nursing Vital Signs Nursing Vital Signs: Initial Vital Signs Temperature 97.9 F 07/12/19 10:31 Pulse Rate 97 H 07/12/19 10:31 Respiratory Rate 22 07/12/19 10:31 Blood Pressure 155/101 07/12/19 10:31 O2 Sat by Pulse Oximetry 96 07/12/19 10:31 Pain Scale Pain Intensity 3 - [place] Coma Score Best Eye Response ([place]): (4) open spontaneously Best Verbal Response ([place]): (5) oriented Best Motor Response ([place]): (6) obeys commands [place] Total: 15 - Physical Exam General Appearance: no apparent distress, alert Head Injury: no evidence of injury, No active bleeding, No Silva's Sign, No contusions, No lacerations, No raccoon eyes, No swelling, No tenderness Eye Exam: PERRL/EOMI, eyes nml inspection, photophobia ENT Exam: airway nml, hearing grossly normal Neck Exam: supple Respiratory/Chest Exam: wheezing, No chest tenderness, No accessory muscle use, No palpable fracture Cardiovascular Exam: normal heart sounds, regular rate/rhythm, murmur, normal peripheral pulses, edema, other (lots of lower extremity bruising eccymosis) Gastrointestinal Exam: soft, normal bowel sounds Rectal Exam: not done Back Exam: other (low back pain lumbar s/p fall) Extremity Exam: pelvis stable, limited range of motion, bony point tenderness ( left hip and right hip as well as left proximal femur) Peripheral Pulses: dorsalis-pedis (R): 2+, dorsalis-pedis (L): 2+ Neurologic Exam: alert, cooperative, normal mood/affect, sensation nml, motor deficits, confusion, abnormal gait, No oriented x 3 (alert and partially oriented and can be helped to reason out the month and Pt know the president and year but not the month or day.) Skin Exam: decubitus (left dorsal foot by 3rd and 4th toes.), ecchymosis SpO2: 96 O2 Delivery: Nasal Cannula Ordered Tests: Active Orders 24 hr Category Date Time Status Accucheck ACHS Care 07/12/19 20:00 Active Code Status Order ROUTINE Care 07/12/19 18:15 Active Fall Protocol ROUTINE Care 07/12/19 18:15 Active IV Care Q6H Care 07/12/19 18:[address] in Observation ROUTINE Care 07/12/19 18:15 Active Consult Neurology ROUTINE Cons 07/12/19 18:15 Active 1800 Calorie ADA Diet 07/12/19 Dinner Active FEMUR Stat Exams 07/12/19 11:39 Completed FOOT (MINIMUM 3 VIEWS) Routine Exams 07/12/19 11:03 Completed HIP ALENA (4V) INCL PELV IF DONE Stat Exams 07/12/19 11:03 Completed LUMBAR SPINE W/O [CT] Stat Exams 07/12/19 11:19 Completed SHOULDER Stat Exams 07/12/19 11:03 Completed BMP AM.LAB Lab 07/13/19 04:00 Ordered BMP Stat Lab 07/12/19 13:30 Completed CBC Stat Lab 07/12/19 13:01 Completed CBC W DIFF AM.LAB Lab 07/13/19 04:00 Ordered CULTURE,URINE Stat Lab 07/12/19 Received Lactic Acid Stat Lab 07/12/19 13:40 Completed TSH, 3RD Generation Stat Lab 07/12/19 Completed UA W/RFX UR CULTURE Stat Lab 07/12/19 Completed Peak Expiratory Flow Rate ONCE RT 07/12/19 12:40 Completed Respiratory Therapy Assessment DAILY RT 07/12/19 12:36 Completed Transfer Order Routine Transfer 07/12/19 Completed Medication Summary Generic Name Dose Route Start Last Admin Trade Name Asherq PRN Reason Stop Dose Admin Alprazolam 1 mg 07/12/19 20:02 Xanax 1 Mg PO 08/11/19 21:59 BID PRN ANXIETY Calcium Carbonate 1 tab 07/12/19 22:00 Calcium 500mg W/Vit D Tablet PO 08/11/19 21:59 BID PIPPA Insulin Aspart 0 unit 07/12/19 19:51 Novolog Insulin SQ 08/11/19 19:50 UD PRN HYPERGLYCEMIA Levothyroxine Sodium 50 mcg 07/13/19 06:00 Synthroid 50 Mcg PO 08/12/19 05:59 QAM PIPPA Prochlorperazine 10 mg 07/12/19 22:00 Compazine 5 Mg PO 08/11/19 21:59 BID PIPPA Ropinirole HCl 1 mg 07/12/19 22:00 Requip 2mg Tab PO 08/11/19 21:59 HS PIPPA Discontinued Medications Generic Name Dose Route Start Last Admin Trade Name Asherq PRN Reason Stop Dose Admin Albuterol Sulfate 2.5 mg 07/12/19 12:08 07/12/19 12:22 Proventil 2.5 Mg/3 Ml Neb IH 07/12/19 12:09 2.5 mg STAT ONE Administration Albuterol/Ipratropium Confirm 07/12/19 12:12 Duoneb 0.5-3 Mg/3 Ml Neb Administered 07/12/19 12:13 Dose 3 ml IH .STK-MED ONE Albuterol/Ipratropium 3 ml 07/12/19 16:50 07/12/19 16:53 Duoneb 0.5-3 Mg/3 Ml Neb IH 07/12/19 16:51 3 ml STAT ONE Administration Albuterol/Ipratropium Confirm 07/12/19 16:52 Duoneb 0.5-3 Mg/3 Ml Neb Administered 07/12/19 16:53 Dose 3 ml IH .STK-MED ONE Ipratropium Mcgregor 0.5 mg 07/12/19 12:08 07/12/19 12:22 Atrovent 0.5mg Nebule IH 07/12/19 12:09 0.5 mg STAT ONE Administration Lab/Rad Data: Laboratory Result Diagrams 07/12/19 13:01 07/12/19 13:30 Laboratory Results 07/12/19 07/12/19 07/12/19 Range/Units 13:40 13:30 13:01 WBC 9.7 (4.0-10.5) K/mm3 RBC 3.36 L (4.1-5.4) M/mm3 Hgb 10.2 L (12.0-16.0) gm/dl Hct 31.4 L (35-47) % MCV 93.5 (78-100) fl MCH 30.4 (26-32) pg MCHC 32.5 (32-36) g/dl RDW 18.5 H (11.5-14.0) % Plt Count 165 (150-450) K/mm3 MPV 9.1 (6-9.5) fl Sodium 134 L (137-145) mmol/L Potassium 4.1 (3.5-5.1) mmol/L Chloride 94 L (98-107) mmol/L Carbon Dioxide 29 (22-30) mmol/L Anion Gap 14.1 (5-15) MEQ/L BUN 39 H (7-17) mg/dL Creatinine 1.11 H (0.52-1.04) mg/dL Estimated GFR 50.9 ML/MIN Glucose 167 H (74-106) mg/dL Lactic Acid 1.4 (0.4-2.0) Calcium 9.5 (8.4-10.2) mg/dL - Progress Progress: improved Progress Note: 07/12/19 20:54 I discussed this pt with her daughter who says that her mom is not normally confused and is usually capable of taking care if herself and her at night. Pt has recently been diagnosed with lung cancer and has had a urinary tract infection. Pt has also had a few pain meds and was not confused before yesterday. Pt's daughter says that she has an aide cominig into the pts home every morning while she is at work and then she cooks for them or makes sure they have food in the evening even though her mom is capable of cooking. Pt then visits them every evening and she lives 5 minutes away. She says they know they can call. The pt's has Parkinsons and the pt is his caregiver. Pt was discussed with Dr. Le and will be observed over night and rechecked with a couple labs in the morning. I did discuss with the daughter and that this may be the point where her parents need assisted living care. She says that this is not normal for her mother and she agrees that today she can't be left alone but usually she is fine and doesn't need to be in a longterm. family services assistant can help assiss this pt's needs and the availability of help. Discussed with : Ye Will see patient in: hospital (observation) - Departure Departure Disposition: Observation Clinical Impression: Confusion, hx of, without neuro findings, Sprain of shoulder, left, Sprain of left hip, Sprain of hand, left, Sprain of foot, left, Low back pain, Decubitus skin ulcer, Left foot pain Condition: Good Critical Care Time: No
--- NOTE | 2019-07-12 11:18 | XRAY ---
Indication: Pain following fall. Comparison: June 30, 2019. 3 nonweightbearing views of the left foot unchanged again demonstrating osteopenia, 5th PIP dislocation/subluxation, and small plantar heel spur. No other bony, articular, or soft tissue abnormalities.
--- NOTE | 2019-07-12 11:20 | XRAY ---
Indication: Pain following fall. Comparison: None 3 views of the left shoulder demonstrates osteopenia and mild AC degenerative arthropathy. Partially visualized left Port-A-Cath, aortic calcifications, left lung interstitial alveolar opacities, and left lung apex suture material similar to chest radiograph April 06, 2019. No new/acute findings.
--- NOTE | 2019-07-12 11:22 | XRAY ---
Indication: Pain following fall. Comparison: None AP pelvis and 2 views of the left and right hip demonstrates osteopenia, partially visualized L3 kyphoplasty, pelvic phleboliths, and moderate vascular calcifications bilaterally with bilateral iliac stent grafts. No other bony, articular, or soft tissue abnormalities.
--- NOTE | 2019-07-12 11:46 | XRAY ---
Indication: Pain following fall. Comparison: None 2 views of the left femur interpreted with hip exam of the same day demonstrates mild osteopenia and mild scattered vascular calcifications. No other bony, articular, or soft tissue abnormalities.
[2019-07-12] MEDS ORDERED: PROVENTIL 2.5 MG/3 ML NEB IH ONE (12:08)
[2019-07-12] MEDS ORDERED: Atrovent 0.5MG NEBULE IH ONE (12:08)
[2019-07-12] MEDS ORDERED: DUONEB 0.5-3 MG/3 ml Neb IH ONE ×3 (12:12→16:52)
--- NOTE | 2019-07-12 12:17 | XRAY ---
Indication: Low back pain following fall. Multiple contiguous axial images obtained through the lumbar spine. Two-dimensional sagittal and coronal reformatted images obtained. Comparison: CT abdomen/pelvis October 03, 2018. Stable osteopenia, mild/moderate multilevel degenerative disc disease greatest at L5-S1, and remote T12/L3 superior endplate fractures with kyphoplasty. SI joints are bilaterally symmetric. Stable small sacral bone island adjacent to the right SI joint. No acute fracture, suspicious bony lesions, or spinal canal stenosis. Sagittal and coronal reformatted images again demonstrates normal lumbar alignment/lordosis with L5-S1 disc space narrowing. No acute compression fracture or subluxation. Visualized noncontrasted soft tissues again demonstrates small hiatal hernia, left adrenal hypertrophy, scattered aortoiliac calcifications, and bilateral common iliac artery stent grafts. Impression: 1. Stable osteopenia, multilevel degenerative spondylosis, T12/L3 kyphoplasty, right sacrum bone island, hiatal hernia, left adrenal hypertrophy, and arteriosclerotic disease. 2. Again negative acute fracture/subluxation. CTDI 41.73
[2019-07-12 13:50] LABS: Hematocrit 31.4 % (35-47); Hemoglobin 10.2 gm/dl (12.0-16.0); Mean Cell Volume 93.5 fl (78-100); Mean Corpuscular Hemoglobin 30.4 pg (26-32); Mean Corpuscular Hgb Concent. 32.5 g/dl (32-36); Mean Platelet Volume 9.1 fl (6-9.5); Platelet Count 165 K/mm3 (150-450); Red Blood Count 3.36 M/mm3 (4.1-5.4); Red Cell Distribution Width 18.5 % (11.5-14.0); White Blood Count 9.7 K/mm3 (4.0-10.5)
[2019-07-12 14:00] LABS: ANION GAP 14.1 MEQ/L (5-15); Calcium 9.5 mg/dL (8.4-10.2); Creatinine 1 1.11 mg/dL (0.52-1.04); Potassium 4.1 mmol/L (3.5-5.1)
[2019-07-12 16:00] LABS: Appearance SLIGHTLY CLOUDY (CLEAR); Bacteria RARE /HPF (NEGATIVE); Bilirubin NEGATIVE (NEGATIVE); Blood NEGATIVE Ery/ul (0-5); Glucose 50 mg/dL (NEGATIVE); Ketones SMALL (NEGATIVE); Leukocyte Esterase NEGATIVE (NEGATIVE); Mucus SLIGHT /HPF (NEGATIVE); Nitrite NEGATIVE (NEGATIVE); Protein,Urine Dip 30 (Negative); Specific Gravity 1.023 (1.005-1.025); Urobilinogen NEGATIVE mg/dL (0-1)
[2019-07-12] MEDS ORDERED: XANAX 1 MG PO PRN (20:02)
[2019-07-12] MEDS ORDERED: PROVENTIL 2.5 MG/3 ML NEB IH PRN (20:44)
[2019-07-12] MEDS: REQUIP 2MG TAB PO SCH (21:02)
[2019-07-12] MEDS: Compazine 5 MG PO SCH (21:02)
[2019-07-12] MEDS: NovoLOG Insulin SQ PRN (21:03)
[2019-07-12] MEDS: Calcium 500MG W/Vit D Tablet PO SCH ×2 (21:03→21:05)
[2019-07-13] MEDS: SYNTHROID 50 MCG PO SCH ×2 (04:45→04:46)
[2019-07-13 05:15] LABS: Absolute Neutrophil Ct (ANC) 5.84 (1.4-6.9); BASOPHIL % 0.4 % (0.0-0.4); Basophil (Absolute #) 0.03 (0-0.4); Eosinophil % 1.1 % (0.00-5.0); Eosinophil (Absolute #) 0.09 (0-0.5); Hematocrit 30.8 % (35-47); Hemoglobin 9.7 gm/dl (12.0-16.0); Lymphocyte (Absolute #) 0.97 (1.0-4.6); Lymphocytes % 11.9 % (24.0-44.0); Mean Cell Volume 96.3 fl (78-100); Mean Corpuscular Hemoglobin 30.3 pg (26-32); Mean Corpuscular Hgb Concent. 31.5 g/dl (32-36); Mean Platelet Volume 9.1 fl (6-9.5); Monocyte (Absolute #) 1.23 (0.0-1.3); Monocytes % 15.1 % (0.0-12.0); Neutrophil % 71.5 % (36.0-66.0); Platelet Count 139 K/mm3 (150-450); Red Cell Distribution Width 18.7 % (11.5-14.0); White Blood Count 8.2 K/mm3 (4.0-10.5)
[2019-07-13 05:43] LABS: ANION GAP 9.4 MEQ/L (5-15); BLOOD UREA NITROGEN 24 mg/dL (7-17); CHLORIDE 96 mmol/L (98-107); Calcium 9.3 mg/dL (8.4-10.2); Carbon Dioxide 33 mmol/L (22-30); Glucose 143 mg/dL (74-106); Potassium 3.6 mmol/L (3.5-5.1); SODIUM 135 mmol/L (137-145)
[2019-07-13] MEDS: PROVENTIL 2.5 MG/3 ML NEB IH SCH ×4 (07:39→19:31)
[2019-07-13] MEDS: Advair Hfa 115/21 Common canister IH SCH ×2 (07:39→19:32)
--- NOTE | 2019-07-13 08:36 | XRAY ---
Indication: Altered mental status. Status post fall. Blood thinner therapy. Multiple contiguous axial images obtained through the head without contrast. Comparison: None Age-appropriate global atrophy and minimal periventricular degenerative micro-ischemia. No acute intracranial hemorrhage, abnormal extra-axial fluid collection, or mass effect. Fourth ventricle is midline without hydrocephalus. Bony calvarium intact. Visualized paranasal sinuses and mastoid air cells are clear. Impression: Nonacute senile brain. CTDI 51.55
--- NOTE | 2019-07-13 09:05 | PCM.HP ---
History of Present Illness - Chief Complaint Chief Complaint: altered mental status, with fall and left hip and shoulder and hand sprains Date: 07/13/19 History of Present Illness: is a 74 year old female seen and examined this am following ER admission for AMS. Patient is a mildly limited historian. Family not at bedside. Information gathered from chart, patient ER dr and nurse. Patient reports that she does not remember what happened prior to hospital admission. She reports that she got dizzy and fell. She remembered knocking something over but couldnt remember what. She stated she woke up the next morning laying on the floor without any clothes on. Patient reports that she is doing slightly better today. She reports that she has not slept the previous two nights but was able to sleep last night. Patient reports that they have home health that come in to help with her who has Parkinsons. Patient reports that it is not enough help at home. Patient reports that she has to use a cane, walker and wheelchair. Report from the ER physician was that EMS found patient and both laying on the floor in their home. Daughter also spoke with nurse and stated that she thinks her mother has been more confused since being on pain medication. Patient was at one point being treated for UTI and was on macrobid. Patient reports that she never made it to wound care for the foot laceration that she got following injury from oxygen tank. Patient reports that she was unsure why she never made it to wound care. - Review of Systems Constitutional: Malaise, Weakness, No Fever Eyes: Other (Blurry vision) Ears, Nose, & Throat: No Ear Pain, No Hearing Changes, No Nose Congestion, No Nose Discharge, No Mouth Pain Respiratory: No Cough, No Short Of Breath Cardiac: Syncope, No Chest Pain, No Edema, No Palpitations Abdominal/Gastrointestinal: Nausea, Diarrhea, No Abdominal Pain, No Vomiting, No Constipation Genitourinary Symptoms: Frequency, Other (Unsure if patient is having vaginal bleeding), No Dysuria, No Hematuria Musculoskeletal: Back Pain, Fall, Injury, Myalgias Skin: Other (wound on foot), No Rash Neurological: Dizziness, Gait Changes, Tremors (Patient reports new tremors in her hands), No Headache Endocrine: Polyuria Hematologic/Lymphatic: No Anemia Medications & Allergies Home Medications: Home Medication List Clopidogrel Bisulfate 75 mg [PLAVIX 75 MG Tablet] 0.5 tab PO DAILY [History Confirmed 07/12/19] Escitalopram Oxalate [Lexapro] 20 mg PO DAILY 12/14/17 [History Confirmed ] Insulin Lispro [Humalog] 4 unit SQ AC 12/14/17 [History Confirmed 07/12/19] Lisinopril 10 mg PO DAILY 12/14/17 [History Confirmed 07/12/19] PANTOPRAZOLE 40 mg Tablet [Protonix 40MG Tablet] 40 mg PO DAILY 12/14/17 [ History Confirmed 07/12/19] Prednisone 10 mg [Deltasone 10 mg] 10 mg PO DAILY 12/14/17 [History Confirmed 07/12/19] Albuterol 2.5 mg/3 ml Neb [Proventil 2.5 mg/3 ml Neb] 2.5 mg IH QID [History Confirmed 07/12/19] Alprazolam 1 mg [Xanax 1 mg] 1 mg PO BID PRN 08/01/18 [History Confirmed 07/12/19] Calcium Carbonate/Vitamin D3 [Calcium 600 + Vit D Tablet] 1 each PO BID [History Confirmed 07/12/19] Cyanocobalamin 1000 Mcg/ml [Cyanocobalamin B-12 1000 MCG/ML] 1,000 mcg IJ UD 08/01/18 [History Confirmed 07/12/19] Cranberry Extract [Cranberry] 500 mg PO BID 02/10/19 [History Confirmed 07/12/19 ] Levothyroxine Sodium 50 Mcg [Synthroid 50 Mcg] 50 mcg PO DAILY 02/10/19 [ History Confirmed 07/12/19] Loperamide HCl 2 mg [Imodium 2 mg] 2 mg PO UD 02/10/19 [History Confirmed 07/12/19] Prochlorperazine Maleate 10 mg [Compazine 10 mg] 10 mg PO BID 02/10/19 [History Confirmed 07/12/19] Nonformulary 1 tab PO Q6H PRN PRN 07/12/19 [History Confirmed 07/12/19] Ropinirole HCl 1 mg PO HS 07/12/19 [History Confirmed 07/12/19] Allergies/Adverse Reactions: Allergies Allergy/AdvReac Type Severity Reaction Status Date / Time latex Allergy Mild Itching Verified 10/03/18 12:51 adhesive Allergy Rash Verified 10/03/18 12:51 - Past Medical History Past Medical History: Yes Neurological History: Peripheral Neuropathy, Stroke ENT History: Cataracts, Other Cardiac History: Aneurysm, Congestive Heart Failure, Peripheral Vascular Disease Respiratory History: Asthma, Bronchitis, CHF, COPD, Emphysema, Lung Cancer Endocrine Medical History: Diabetes Type II Musculoskelatal History: Bone Cancer, Fractures, Osteoarthritis GI Medical History: Hernia History: Other Pyscho-Social History: Anxiety, Depression Reproductive Disorders: No Pertinent History Comment: LOBECTOMY AND 3 RIBS EXCISED, LYMPH NODES ALSO REMOVED; SHE JUST FININSHED [address] [place] AORTIC ANEURYSM, - Female History Hx Last Menstrual Period: post Are you now?: No (N) - Past Surgical History Past Surgical History: Yes Neuro Surgical History: No Pertinent History Cardiac History: Cardiac Catheterization Respiratory Surgery: Lobectomy, Other GI Surgical History: Appendectomy, Cholecystectomy Genitourinary Surgical Hx: No Pertinent History Musculskeletal Surgical Hx: Other Female Surgical History: Tubal Ligation Other Surgical History: cyst on finger, ribs removed and kyphoplasty, vein stripping on left leg with stenting both legs, RIGHT UPPER LOBE REMOVED. - Social History Smoking Status: Former smoker How long have you smoked: 42years Exposure to second hand smoke: No Alcohol: None Drug Use: none - Physical Exam Vital Signs: Vital Signs - 24 hr Temp Pulse Resp BP Pulse Ox 07/13/19 07:41 90 22 92 L 07/13/19 07:25 98 F 80 20 138/70 95 07/13/19 04:00 98.5 F 94 H 18 148/68 95 07/12/19 23:49 97.9 F 97 H 18 141/62 98 07/12/19 21:01 96 07/12/19 20:45 96 H 22 92 L 07/12/19 20:00 98.8 F 92 H 18 132/62 94 L 07/12/19 18:19 98.8 F 92 H 18 132/62 94 L 07/12/19 18:14 92 H 118/65 92 L 07/12/19 17:17 98.7 F 97 H 18 127/64 93 L 07/12/19 16:56 92 H 20 91 L 07/12/19 15:45 72 16 94 L 07/12/19 14:23 100 H 16 120/62 96 07/12/19 13:11 97 H 18 136/63 07/12/19 12:36 98 H 24 91 L 07/12/19 12:10 102 H 20 135/79 98 07/12/19 11:19 82 16 128/86 93 L 07/12/19 10:31 97.9 F 97 H 22 155/101 96 Oxygen-Last 24 hours O2 Percentage 4 Liters = 36% O2 Percentage 4 Liters = 36% O2 Percentage 4 Liters = 36% O2 Percentage 4 Liters = 36% O2 Percentage 4 Liters = 36% O2 Percentage 4 Liters = 36% O2 Percentage 2 Liters = 28% O2 Percentage 2 Liters = 28% General Appearance: mild distress Neurologic Exam: alert, cooperative, manager intelligence II-XII nml as tested, normal mood/ affect, other (Patient knew the day but not the month. She knew the year and who the president was. She was able to perform three word recall. She answered the reasoning question correctly. She knew where she was.) Eye Exam: eyes nml inspection (No nystagmus EOMI was normal) Neck Exam: non-tender, supple, No carotid bruit, No JVD Respiratory Exam: normal breath sounds, lungs clear, No respiratory distress, No crackles/rales, No rhonchi Cardiovascular Exam: regular rate/rhythm, murmur (grade 1 systolic murmur), No normal heart sounds, No friction rub, No gallop Gastrointestinal/Abdomen Exam: soft, No normal bowel sounds, No tenderness, No distention, No mass, No guarding Pelvic Exam: not done Rectal Exam: not done Back Exam: other (Multiple ecchymosis on her back) Extremity Exam: calf tenderness, No deformities Skin Exam: warm, dry, ecchymosis, laceration (lac on foot), No rash Wound Assessment: Skin/Wound Assessment Wound/Incision Assessment Start: 07/13/19 01: 51 Text: Status: Active Freq: Q6H Protocol: Document 07/13/19 08:00 BE (Rec: 07/13/19 08:30 BE [id number]) Wound/Incision Assessment Left Foot Wound Assessment Shift Assessment Wound Type Stasis Ulcer Wound Stage Unstageable Dressing Status Dry & Intact Drainage Amount Minimal Drainage Description Serosanguineous Drainage Odor None/Absent General Appearance Draining Bleeding Wound Bed Greatest Portion Yellow (Slough) Wound Bed Lesser Portion Shiny Dusky Red Surrounding Tissue Dark Red Topical Solution/Irrigant Saline Irrigant Primary Dressing Non-Adherent Gauze Pads Secondary Dressing Gauze Roll/Wrap Results - Labs Lab/Micro Results: Accuchecks Date 07/13/19 Date 07/12/19 Time 07:30 Time 22:00 Accucheck Value: 144 Accucheck Value: 202 Lab Results-Last 24 Hours 07/12/19 07/12/19 07/12/19 Range/Units 13:01 13:30 13:40 WBC 9.7 (4.0-10.5) K/mm3 RBC 3.36 L (4.1-5.4) M/mm3 Hgb 10.2 L (12.0-16.0) gm/dl Hct 31.4 L (35-47) % MCV 93.5 (78-100) fl MCH 30.4 (26-32) pg MCHC 32.5 (32-36) g/dl RDW 18.5 H (11.5-14.0) % Plt Count 165 (150-450) K/mm3 MPV 9.1 (6-9.5) fl Gran % (36.0-66.0) % Eos # (Auto) (0-0.5) Absolute Lymphs (auto) (1.0-4.6) Absolute Monos (auto) (0.0-1.3) Lymphocytes % (24.0-44.0) % Monocytes % (0.0-12.0) % Eosinophils % (0.00-5.0) % Basophils % (0.0-0.4) % Absolute Granulocytes (1.4-6.9) Basophils # (0-0.4) Sodium 134 L (137-145) mmol/L Potassium 4.1 (3.5-5.1) mmol/L Chloride 94 L (98-107) mmol/L Carbon Dioxide 29 (22-30) mmol/L Anion Gap 14.1 (5-15) MEQ/L BUN 39 H (7-17) mg/dL Creatinine 1.11 H (0.52-1.04) mg/dL Estimated GFR 50.9 ML/MIN Glucose 167 H (74-106) mg/dL Lactic Acid 1.4 (0.4-2.0) Calcium 9.5 (8.4-10.2) mg/dL TSH 3rd Generation (0.47-4.68) mIU/L Urine Color (YELLOW) Urine Appearance (CLEAR) Urine pH (5-6) Ur Specific [place] (1.005-1.025) Urine Protein (Negative) Urine Ketones (NEGATIVE) Urine Blood (0-5) Johnathon/ul Urine Nitrite (NEGATIVE) Urine Bilirubin (NEGATIVE) Urine Urobilinogen (0-1) mg/dL Ur Leukocyte Esterase (NEGATIVE) Urine WBC (Auto) (0-5) /HPF Urine RBC (Auto) (0-2) /HPF U Epithel Cells (Auto) (FEW) /HPF Urine Bacteria (Auto) (NEGATIVE) /HPF Urine Mucus (Auto) (NEGATIVE) /HPF Urine Culture Reflexed (NO) Urine Glucose (NEGATIVE) mg/dL 07/12/19 07/12/19 07/13/19 Range/Units Unknown Unknown 04:50 WBC 8.2 (4.0-10.5) K/mm3 RBC 3.20 L (4.1-5.4) M/mm3 Hgb 9.7 L (12.0-16.0) gm/dl Hct 30.8 L (35-47) % MCV 96.3 (78-100) fl MCH 30.3 (26-32) pg MCHC 31.5 L (32-36) g/dl RDW 18.7 H (11.5-14.0) % Plt Count 139 L (150-450) K/mm3 MPV 9.1 (6-9.5) fl Gran % 71.5 H (36.0-66.0) % Eos # (Auto) 0.09 (0-0.5) Absolute Lymphs (auto) 0.97 L (1.0-4.6) Absolute Monos (auto) 1.23 (0.0-1.3) Lymphocytes % 11.9 L (24.0-44.0) % Monocytes % 15.1 H (0.0-12.0) % Eosinophils % 1.1 (0.00-5.0) % Basophils % 0.4 (0.0-0.4) % Absolute Granulocytes 5.84 (1.4-6.9) Basophils # 0.03 (0-0.4) Sodium (137-145) mmol/L Potassium (3.5-5.1) mmol/L Chloride (98-107) mmol/L Carbon Dioxide (22-30) mmol/L Anion Gap (5-15) MEQ/L BUN (7-17) mg/dL Creatinine (0.52-1.04) mg/dL Estimated GFR ML/MIN Glucose (74-106) mg/dL Lactic Acid (0.4-2.0) Calcium (8.4-10.2) mg/dL TSH 3rd Generation 1.240 (0.47-4.68) mIU/L Urine Color YELLOW (YELLOW) Urine Appearance SLIGHTLY CLOUDY (CLEAR) Urine pH 5.0 (5-6) Ur Specific [place] 1.023 (1.005-1.025) Urine Protein 30 (Negative) Urine Ketones SMALL (NEGATIVE) Urine Blood NEGATIVE (0-5) Johnathon/ul Urine Nitrite NEGATIVE (NEGATIVE) Urine Bilirubin NEGATIVE (NEGATIVE) Urine Urobilinogen NEGATIVE (0-1) mg/dL Ur Leukocyte Esterase NEGATIVE (NEGATIVE) Urine WBC (Auto) 6-10 (0-5) /HPF Urine RBC (Auto) NONE (0-2) /HPF U Epithel Cells (Auto) NONE (FEW) /HPF Urine Bacteria (Auto) RARE (NEGATIVE) /HPF Urine Mucus (Auto) SLIGHT (NEGATIVE) /HPF Urine Culture Reflexed YES (NO) Urine Glucose 50 (NEGATIVE) mg/dL 07/13/19 Range/Units 04:50 WBC (4.0-10.5) K/mm3 RBC (4.1-5.4) M/mm3 Hgb (12.0-16.0) gm/dl Hct (35-47) % MCV (78-100) fl MCH (26-32) pg MCHC (32-36) g/dl RDW (11.5-14.0) % Plt Count (150-450) K/mm3 MPV (6-9.5) fl Gran % (36.0-66.0) % Eos # (Auto) (0-0.5) Absolute Lymphs (auto) (1.0-4.6) Absolute Monos (auto) (0.0-1.3) Lymphocytes % (24.0-44.0) % Monocytes % (0.0-12.0) % Eosinophils % (0.00-5.0) % Basophils % (0.0-0.4) % Absolute Granulocytes (1.4-6.9) Basophils # (0-0.4) Sodium 135 L (137-145) mmol/L Potassium 3.6 (3.5-5.1) mmol/L Chloride 96 L (98-107) mmol/L Carbon Dioxide 33 H (22-30) mmol/L Anion Gap 9.4 (5-15) MEQ/L BUN 24 H (7-17) mg/dL Creatinine 0.90 (0.52-1.04) mg/dL Estimated GFR > 60.0 ML/MIN Glucose 143 H (74-106) mg/dL Lactic Acid (0.4-2.0) Calcium 9.3 (8.4-10.2) mg/dL TSH 3rd Generation (0.47-4.68) mIU/L Urine Color (YELLOW) Urine Appearance (CLEAR) Urine pH (5-6) Ur Specific [place] (1.005-1.025) Urine Protein (Negative) Urine Ketones (NEGATIVE) Urine Blood (0-5) Johnathon/ul Urine Nitrite (NEGATIVE) Urine Bilirubin (NEGATIVE) Urine Urobilinogen (0-1) mg/dL Ur Leukocyte Esterase (NEGATIVE) Urine WBC (Auto) (0-5) /HPF Urine RBC (Auto) (0-2) /HPF U Epithel Cells (Auto) (FEW) /HPF Urine Bacteria (Auto) (NEGATIVE) /HPF Urine Mucus (Auto) (NEGATIVE) /HPF Urine Culture Reflexed (NO) Urine Glucose (NEGATIVE) mg/dL Microbiology 07/12/19 Unknown Urine Culture - Preliminary Urine, Void NO GROWTH TO DATE Accuchecks Date 07/13/19 Date 07/12/19 Time 07:30 Time 22:00 Accucheck Value: 144 Accucheck Value: 202 - Radiology Impressions Radiology Exams & Impressions: Radiology Procedures Category Date Time Status FEMUR Stat Exams 07/12/19 11:39 Completed FOOT (MINIMUM 3 VIEWS) Routine Exams 07/12/19 11:03 Completed HEAD WITHOUT CONTRAST [CT] Urgent Exams 07/12/19 20:23 Completed HIP ALENA (4V) INCL PELV IF DONE Stat Exams 07/12/19 11:03 Completed LUMBAR SPINE W/O [CT] Stat Exams 07/12/19 11:19 Completed SHOULDER Stat Exams 07/12/19 11:03 Completed - Other Procedures and Tests Respiratory Therapy 07/12/19 20:45 Oxygen Nasal Cannula 4 lpm Respiratory Therapy Assessment DAILY Assessment/Plan (1) Encephalopathy Current Visit: Yes Status: Acute Assessment & Plan: 74 yr old female that presented to ER with encephalopathy of unknown etiology. CPK was ordered today which did not indicate rhabdo as a cause. Patient does have a noted lung infection and was being treated prior to hospital admission for a UTI which appears to be resolved. Patient's electrolytes appear to be wnl. Family felt AMS may have been related to her pain medication that she was on. Patient is not on any narcotic pain medication at this time. Will continue to monitor symptoms. Tele neuro was consulted by ER and recommended CT which was neg for any significant abnormalities. Code(s): G93.40 - ENCEPHALOPATHY, UNSPECIFIED (2) Left foot pain Current Visit: Yes Status: Acute Assessment & Plan: Likely related to previous injury. Wound care consulted and patient will have dressing changes performed. Patient was supposed to be going to wound care as outpatient prior to hospital admission but was not going. Code(s): M79.672 - PAIN IN LEFT FOOT (3) Low back pain Current Visit: Yes Status: Acute Qualifiers: Back pain laterality: left Sciatica presence: with sciatica Sciatica laterality: bilateral sciatica Assessment & Plan: Chronic in nature. Patient has some new ecchymosis on her back. Tylenol has been ordered for pain control Code(s): M54.5 - LOW BACK PAIN (4) Fall Current Visit: No Status: Acute Assessment & Plan: Patient should be on fall precautions during her admission. Patient will also have PT ordered to help with her build her strength and assess her mobility with her assistive devices. Code(s): W19.XXXA - UNSPECIFIED FALL, INITIAL ENCOUNTER (5) Anemia Current Visit: Yes Status: Acute Assessment & Plan: Patient has had hgb that has trended down likely not dilutional. Patient had a reported black stool. Will get FOBT test and evaluate for GI bleed. This could be a cause of patient's AMS as well. Will continue to trend CBC and get GI consult and consider possible transfusion if necessary Code(s): D64.9 - ANEMIA, UNSPECIFIED (6) KAMILLA (acute kidney injury) Current Visit: Yes Status: Resolved Assessment & Plan: Patient has KAMILLA on CKD. Patient was possibly dehydrated prior to admission. Will continue to trend and remove medications that would worsen kidney function Code(s): N17.9 - ACUTE KIDNEY FAILURE, UNSPECIFIED (7) Pneumonia Current Visit: No Status: Acute Assessment & Plan: Patient was also found to have infiltrate and was started on Rocephin in ER. Will continue to treat pneumonia. Code(s): J18.9 - PNEUMONIA, UNSPECIFIED ORGANISM
[2019-07-13] MEDS ORDERED: IMODIUM 2 MG PO SCH (09:45)
[2019-07-13] MEDS ORDERED: Cyanocobalamin B-12 1000 MCG/ML IJ SCH ×2 (09:45→11:00)
[2019-07-13] MEDS ORDERED: NON-FORMULARY ITEM (Escitalopram Oxalate [Lexapro] 20 MG) PO SCH (10:00)
[2019-07-13] MEDS: Lexapro 10 MG PO SCH (10:39)
[2019-07-13] MEDS: PLAVIX 75 MG Tablet PO SCH (10:39)
[2019-07-13] MEDS: Zestril 10 MG PO SCH (10:40)
[2019-07-13] MEDS: Calcium 500MG W/Vit D Tablet PO SCH ×2 (10:40→21:36)
[2019-07-13] MEDS: DELTASONE 10 MG PO SCH (10:40)
[2019-07-13] MEDS: Compazine 5 MG PO SCH ×2 (10:41→21:35)
[2019-07-13] MEDS: Protonix 40MG Tablet PO SCH (10:42)
--- NOTE | 2019-07-13 10:43 | XRAY ---
Indication: Back pain. Kidney infection. Frequent urination. Multiple contiguous axial images obtained through the abdomen and pelvis without contrast as ordered. Comparison: October 03, 2018. Lung bases again demonstrates scattered fibrosis/scarring, subpleural cysts, benign 1.5 cm left base noncalcified nodule, mild dependent atelectasis, and small hiatal hernia. New left lower lobe airspace opacities. Heart is not enlarged. Noncontrasted stomach and bowel loops nonobstructed. Stable appendectomy, cholecystectomy, and left adrenal hypertrophy. No free fluid/air. Uterus again demonstrates 2 cm endometrial cavity thickening at the level of the fundus. Remaining liver, pancreas, spleen, right adrenal gland, kidneys, ureters, and bladder appear unremarkable for noncontrast exam. Stable heavy scattered vascular calcifications without AAA. Osseous structures again demonstrates osteopenia, degenerative changes throughout the thoracolumbar spine, T12/L3 kyphoplasty, small right sacral bone island, and old right rib fractures. Stable small fatty right inguinal hernia. Impression: 1. Uterus continues to demonstrate fundal endometrial cavity thickening, abnormal in this presumed postmenopausal patient. Pelvic sonogram may yield further information. 2. New left lower lobe airspace disease. 3. Stable pulmonary fibrosis/scarring, benign left lung base noncalcified nodule, small hiatal hernia, left adrenal hypertrophy, small fatty right inguinal hernia, and chronic bony findings. CT DI 14.41
[2019-07-13] MEDS ORDERED: NON-FORMULARY ITEM (Insulin Lispro 4 UNIT) SQ SCH (11:30)
[2019-07-13] MEDS: TYLENOL 325 MG PO PRN ×3 (14:00→22:13)
[2019-07-13] MEDS: NovoLOG Insulin SQ SCH ×2 (14:01→18:05)
[2019-07-13] MEDS: NovoLOG Insulin SQ PRN (14:01)
[2019-07-13] MEDS: ROCEPHIN 1 Gm-D5w 50 ml Bag** 1 G/50 ML IVPB IV SCH (14:02)
[2019-07-13 17:45] LABS: Appearance SLIGHTLY CLOUDY (CLEAR); Bilirubin NEGATIVE (NEGATIVE); Blood SMALL Ery/ul (0-5); Epithelial Cells RARE /HPF (FEW); Glucose 50 mg/dL (NEGATIVE); Hyaline Casts 0-2 /LPF (0-2); Ketones TRACE (NEGATIVE); Leukocyte Esterase NEGATIVE (NEGATIVE); Mucus SLIGHT /HPF (NEGATIVE); Nitrite NEGATIVE (NEGATIVE); Protein,Urine Dip 30 (Negative); Specific Gravity 1.018 (1.005-1.025); Urobilinogen NEGATIVE mg/dL (0-1)
[2019-07-13] MEDS ORDERED: Sodium Chloride 0.9% W/ 20 mEq KCl/LITER 1,000 ML IV SCH (17:45)
[2019-07-13] MEDS: REQUIP 2MG TAB PO SCH (21:34)
[2019-07-13] MEDS: XANAX 1 MG PO PRN (21:35)
[2019-07-14] MEDS: SYNTHROID 50 MCG PO SCH (05:38)
[2019-07-14] MEDS: PROVENTIL 2.5 MG/3 ML NEB IH SCH ×4 (06:57→19:36)
[2019-07-14] MEDS: Advair Hfa 115/21 Common canister IH SCH ×2 (06:59→19:37)
[2019-07-14] MEDS: NovoLOG Insulin SQ SCH ×3 (08:33→16:31)
--- NOTE | 2019-07-14 08:34 | PCM.NOTE ---
Date and Time: 07/14/19 0833 Subjective Assessment: 74 yr old female seen and examined this am. Patient reports that she is doing much better today. She still did not sleep overnight. She denies any more confusion. She reports the reason she did not sleep is that she was having severe back pain. She reports hx of sciatica and that she used to get steroid injections. She denies being on gabapentin or lyrica in the past for sciatica. No other reported concerns this am - Review of Systems Constitutional: Weakness, No Fever Eyes: No Symptoms Ears, Nose, & Throat: No Symptoms Respiratory: Short Of Breath (when up and walking around), No Cough, No Wheezing Cardiac: No Chest Pain, No Edema Abdominal/Gastrointestinal: No Abdominal Pain, No Nausea, No Vomiting, No Diarrhea, No Constipation Genitourinary Symptoms: No Dysuria, No Frequency Musculoskeletal: Arthralgias, Back Pain, Fall (recent fall at home), Joint Pain (left hip) Skin: Other (ecchymosis on lower extremities bilaterally), No Rash Neurological: No Symptoms Psychological: No Symptoms Endocrine: No Symptoms Hematologic/Lymphatic: Anemia Objective Exam General Appearance: mild distress Neurologic Exam: alert, oriented x 3, cooperative, normal mood/affect Skin Exam: normal color, warm, dry, ecchymosis (multiple on back and lower extremities), No rash Wound Assessment: Skin/Wound Assessment Wound/Incision Assessment Start: 07/13/19 01: 51 Text: Status: Active Freq: Q6H Protocol: Document 07/14/19 02:00 BW (Rec: 07/14/19 02:41 BW [id number]) Wound/Incision Assessment Left Foot Wound Assessment Shift Assessment Wound Type Stasis Ulcer Wound Stage Unstageable Dressing Status Dry & Intact Drainage Amount Minimal Drainage Description Serosanguineous Drainage Odor None/Absent General Appearance Clean/Dry Wound Bed Greatest Portion Yellow (Slough) Wound Bed Lesser Portion Shiny Dusky Red Surrounding Tissue Dark Red Topical Solution/Irrigant Saline Irrigant Primary Dressing Non-Adherent Gauze Pads Secondary Dressing Gauze Roll/Wrap Comment dressing CDI Wound Photo Photo Taken Yes Date: 07/12/19 Distance from Wound: bedside Eye Exam: eyes nml inspection Ears, Nose, Throat Exam: moist mucous membranes Neck Exam: normal inspection, No non-tender, No carotid bruit Respiratory Exam: normal breath sounds, lungs clear, No respiratory distress, No crackles/rales, No wheezing Cardiovascular Exam: regular rate/rhythm, normal heart sounds, No murmur, No friction rub, No gallop Gastrointestinal/Abdomen Exam: soft, normal bowel sounds, No tenderness, No distention, No guarding Extremity Exam: contusions (bilateral lower extremities), No pedal edema Back Exam: other (Tenderness with palpation lower left side) OBJECTIVE DATA Vital Signs: Vital Signs - 24 hr Temp Pulse Resp BP Pulse Ox 07/14/19 08:00 98.3 F 89 20 137/67 99 07/14/19 07:40 81 18 95 07/14/19 04:00 97.9 F 81 24 138/63 94 L 07/13/19 23:57 98.3 F 86 24 105/58 94 L 07/13/19 20:00 98.2 F 88 24 100/54 94 L 07/13/19 19:36 88 24 94 L 07/13/19 16:27 98 F 94 H 20 140/82 95 07/13/19 14:35 90 24 96 07/13/19 13:09 98 F 102 H 20 138/89 95 07/13/19 11:25 92 H 22 96 Oxygen-Last 24 hours O2 Percentage 4 Liters = 36% O2 Percentage 4 Liters = 36% O2 Percentage 4 Liters = 36% O2 Percentage 4 Liters = 36% O2 Percentage 4 Liters = 36% O2 Percentage 4 Liters = 36% Pain Assessment - Last Documented Pain Intensity 2 Pain Scale Used 0-10 Pain Scale,FLACC Intake and Output: Intake & Output 07/11/19 07/12/19 07/13/19 07/14/19 11:59 11:59 11:59 11:59 Intake Total 530 1658 Output Total 400 1250 Balance 130 408 Weight 148 kg 71.8 kg Lab Results: Accuchecks Date 07/13/19 Date 07/13/19 Date 07/13/19 Time 22:00 Time 16:30 Time 11:30 Accucheck Value: 243 Accucheck Value: 144 Accucheck Value: 272 Lab Results-Last 24 Hours 07/13/19 07/13/19 07/13/19 Range/Units 06:00 17:30 21:30 Creatine Kinase 158 H (30-135) U/L Urine Color TOSHA (YELLOW) Urine Appearance SLIGHTLY CLOUDY (CLEAR) Urine pH 5.0 (5-6) Ur Specific [place] 1.018 (1.005-1.025) Urine Protein 30 (Negative) Urine Ketones TRACE (NEGATIVE) Urine Blood SMALL (0-5) Johnathon/ul Urine Nitrite NEGATIVE (NEGATIVE) Urine Bilirubin NEGATIVE (NEGATIVE) Urine Urobilinogen NEGATIVE (0-1) mg/dL Ur Leukocyte Esterase NEGATIVE (NEGATIVE) Urine WBC (Auto) 3-5 (0-5) /HPF Urine RBC (Auto) NONE (0-2) /HPF U Hyaline Cast (Auto) 0-2 (0-2) /LPF U Epithel Cells (Auto) RARE (FEW) /HPF Urine Bacteria (Auto) NONE (NEGATIVE) /HPF Urine Mucus (Auto) SLIGHT (NEGATIVE) /HPF Urine Culture Reflexed YES (NO) Urine Glucose 50 (NEGATIVE) mg/dL Stool Occult Bld Scrn NEGATIVE (NEGATIVE) Radiology Exams: Radiology Procedures Category Date Time Status ABDOMEN AND PELVIS W/0 CONTRAS [CT] Urgent Exams 07/13/19 09:20 Completed ECHO W/2D AND DOPPLER [US] Routine Exams 07/13/19 12:23 Taken FEMUR Stat Exams 07/12/19 11:39 Completed FOOT (MINIMUM 3 VIEWS) Routine Exams 07/12/19 11:03 Completed HEAD WITHOUT CONTRAST [CT] Urgent Exams 07/12/19 20:23 Completed HIP ALENA (4V) INCL PELV IF DONE Stat Exams 07/12/19 11:03 Completed LUMBAR SPINE W/O [CT] Stat Exams 07/12/19 11:19 Completed SHOULDER Stat Exams 07/12/19 11:03 Completed Multi-Disciplinary Progress Notes: Multi-Disciplinary Progress Notes 07/13/19 10:26 Case Management Note by Araceli Ballesteros CALL TO [facility], SPOKE WITH GARCIA DAVIS RN, WHO REPORTS THAT BOTH PT AND ARE BEING FOLLOWED BY JELANI PALACIOS WITH [facility]. REPORTS THAT THEY WILL CONTINUE TO FOLLOW ON DISCHARGE. Initialized on 07/13/19 10:26 - END OF NOTE 07/13/19 10:23 Case Management Note by Araceli Ballesteros CALL TO [facility] TO VERIFY PT DOES RECEIVE SERVICES. SPOKE WITH AALIYAH. AALIYAH REPORTS THAT PT/ RECEIVE [facility] THROUGH THEIR [facility] PROGRAM. DID INQUIRE IF PT WOULD QUALIFY FOR ANY ADDNL SERVICES AFTER FALL AT HOME. NATHALIA REPORTS THAT PT IS ALREADY RECEIVING SKILLED SERVICES AT HOME, AND THEY DO NOT OFFER P.T. DAUGHTER REFUSES HHC SERVICES FOR P.T. BECAUSE THEY WOULD HAVE TO PAUSE ALL [facility] THEY WOULD NOT BE ALLOWED TO RECEIVE BOTH SIMULTANEOUSLY. Initialized on 07/13/19 10:23 - END OF NOTE 07/13/19 09:50 (created 07/13/19 10:19) Case Management Note by Araceli Ballesteros SPOKE WITH DAUGHTER, REGARDING NEEDS ON DISCHARGE. DAUGHTER REPORTS THAT THEY DO NOT HAVE HHC SERVICES, REPORTS THAT THEY HAVE [facility], HOMEMAKER, ATTENDANT, AND SKILLED SERVICES. REPORTS THAT HER MOTHER (PT) RECEIVED 6 1/2 HOURS PER WEEK HOMEMAKER, OR 26 HOURS PER MONTH, AND ALSO NURSE/ AIDE SKILLED SERVICES. REPORTS THAT PT'S RECEIVED 24 HOURS PER MONTH HOMEMAKER, 26 HOURS ATTENDANT, AND SKILLED SERVICES. REPORTS THAT IF THEY CHOOSE TO USE HHC SERVICES FOR P.T. THEN THEY WOULD LOSE THE [facility]. DAUGHTER ALSO REPORTS THAT SHE GOES TO THEIR HOME EVERY EVENING AFTER WORK AND ASSISTS WITH ANY NEEDS. DENIES ADDNL NEEDS AT PRESENT TIME. WILL CONTINUE TO FOLLOW. Initialized on 07/13/19 10:19 - END OF NOTE 07/13/19 08:39 Case Management Note by Araceli Ballesteros CALL TO [facility] TO DISCUSS DISCHARGE PLANNING. LEFT A VOICEMAIL ASKING [facility] TO RETURN CALL TO DISCHARGE PLANNING. AWAIT RETURN CALL. Initialized on 07/13/19 08:39 - END OF NOTE Assessment/Plan (1) Encephalopathy Current Visit: Yes Status: Resolved Assessment & Plan: Patient appears to be improving with her confusion and AMS. Will continue to monitor and address any other potential causes. Code(s): G93.40 - ENCEPHALOPATHY, UNSPECIFIED (2) Left foot pain Current Visit: Yes Status: Acute Assessment & Plan: Will continue to have PT do dressing changes of her left foot. Code(s): M79.672 - PAIN IN LEFT FOOT (3) Low back pain Current Visit: Yes Status: Acute Qualifiers: Back pain laterality: left Sciatica presence: with sciatica Sciatica laterality: bilateral sciatica Assessment & Plan: Plan will be to have patient start with steroid injections once discharged from the hospital Code(s): M54.5 - LOW BACK PAIN (4) Fall Current Visit: No Status: Resolved Assessment & Plan: Patient had fall at home unknown cause. Patient has been doing well while in the hospital and has been working with PT and using her ambulatory aides Code(s): W19.XXXA - UNSPECIFIED FALL, INITIAL ENCOUNTER (5) Anemia Current Visit: Yes Status: Acute Assessment & Plan: Patient likely has anemia of chronic disease. She also has hx of macrocytic anemia and is getting b12 supplementation Code(s): D64.9 - ANEMIA, UNSPECIFIED (6) KAMILLA (acute kidney injury) Current Visit: Yes Status: Resolved Assessment & Plan: Improved since admission. Will continue to monitor. Code(s): N17.9 - ACUTE KIDNEY FAILURE, UNSPECIFIED
[2019-07-14 09:09] LABS: BASOPHIL % 0.1 % (0.0-0.4); Basophil (Absolute #) 0.01 (0-0.4); Eosinophil % 1.6 % (0.00-5.0); Eosinophil (Absolute #) 0.12 (0-0.5); Hematocrit 29.6 % (35-47); Hemoglobin 9.1 gm/dl (12.0-16.0); Lymphocyte (Absolute #) 0.82 (1.0-4.6); Mean Cell Volume 98.3 fl (78-100); Mean Corpuscular Hemoglobin 30.2 pg (26-32); Mean Corpuscular Hgb Concent. 30.7 g/dl (32-36); Mean Platelet Volume 8.8 fl (6-9.5); Monocyte (Absolute #) 0.92 (0.0-1.3); Monocytes % 12.3 % (0.0-12.0); Platelet Count 124 K/mm3 (150-450); Red Blood Count 3.01 M/mm3 (4.1-5.4); Red Cell Distribution Width 18.7 % (11.5-14.0); White Blood Count 7.5 K/mm3 (4.0-10.5)
[2019-07-14] MEDS: Lexapro 10 MG PO SCH (09:12)
[2019-07-14] MEDS: DELTASONE 10 MG PO SCH (09:12)
[2019-07-14] MEDS: Calcium 500MG W/Vit D Tablet PO SCH ×2 (09:12→21:02)
[2019-07-14] MEDS: Compazine 5 MG PO SCH ×2 (09:12→21:02)
[2019-07-14] MEDS: PLAVIX 75 MG Tablet PO SCH (09:13)
[2019-07-14] MEDS: Zestril 10 MG PO SCH (09:13)
[2019-07-14] MEDS: Protonix 40MG Tablet PO SCH (09:17)
[2019-07-14 09:37] LABS: ANION GAP 8.8 MEQ/L (5-15); Calcium 8.8 mg/dL (8.4-10.2); Creatinine 1 1.01 mg/dL (0.52-1.04)
[2019-07-14] MEDS: ROCEPHIN 1 Gm-D5w 50 ml Bag** 1 G/50 ML IVPB IV SCH (11:07)
[2019-07-14] MEDS: TYLENOL 325 MG PO PRN ×2 (11:55→21:02)
[2019-07-14] MEDS: NovoLOG Insulin SQ PRN ×2 (16:31→21:05)
[2019-07-14] MEDS: REQUIP 2MG TAB PO SCH (21:02)
[2019-07-14] MEDS: XANAX 1 MG PO PRN (21:04)
[2019-07-15] MEDS: TYLENOL 325 MG PO PRN ×2 (02:03→12:47)
[2019-07-15] MEDS: SYNTHROID 50 MCG PO SCH (06:34)
[2019-07-15] MEDS ORDERED: MORPHINE SULFATE 2 MG INJ IV ONE (06:40)
[2019-07-15] MEDS ORDERED: NEURONTIN 300 MG PO ONE (06:41)
[2019-07-15] MEDS: PROVENTIL 2.5 MG/3 ML NEB IH SCH ×4 (07:14→18:43)
[2019-07-15] MEDS: Advair Hfa 115/21 Common canister IH SCH ×2 (07:15→18:42)
[2019-07-15] MEDS: Lidoderm Patch 5% TOP SCH (09:04)
[2019-07-15] MEDS: Lexapro 10 MG PO SCH (09:04)
[2019-07-15] MEDS: ROCEPHIN 1 Gm-D5w 50 ml Bag** 1 G/50 ML IVPB IV SCH (09:04)
[2019-07-15] MEDS: Protonix 40MG Tablet PO SCH (09:04)
[2019-07-15] MEDS: PLAVIX 75 MG Tablet PO SCH (09:04)
[2019-07-15] MEDS: Calcium 500MG W/Vit D Tablet PO SCH ×2 (09:05→21:19)
[2019-07-15] MEDS: Zestril 10 MG PO SCH (09:05)
[2019-07-15] MEDS: Compazine 5 MG PO SCH ×2 (09:05→21:19)
[2019-07-15] MEDS: NovoLOG Insulin SQ SCH ×3 (09:05→17:26)
[2019-07-15] MEDS: DELTASONE 10 MG PO SCH (09:05)
--- NOTE | 2019-07-15 09:59 | PCM.NOTE ---
Date and Time: 07/15/19 0952 Subjective Assessment: 74 yr old female seen and examined this am. Patient reports that she had a rough day yesterday. She reports that she was in pain most of the day. She has been afraid to say anything about the pain because she didnt want to take pain medication. She reports hx of sciatica and that she has had steroid injections in the past which helped. Patient reports that her legs are painful. Nurse reported that patient did have some desaturations with ambulation yesterday even on oxygen. Patient states she has a hx of COPD and that she has had lung and rib surgery. She still has a port for her treatments. Patient has been eating ok - Review of Systems Constitutional: Weakness, No Fever Eyes: No Symptoms Ears, Nose, & Throat: No Symptoms Respiratory: Short Of Breath (with ambulation), No Cough, No Wheezing Cardiac: No Chest Pain, No Edema, No Palpitations Abdominal/Gastrointestinal: Diarrhea (Patient reports 1-2 loose stools and wanted something for diarrhea), Other (Patient denies any more black stools. ), No Abdominal Pain, No Nausea, No Vomiting, No Constipation Genitourinary Symptoms: No Dysuria, No Frequency, No Hematuria, No Vaginal Bleeding, No Vaginal Discharge Musculoskeletal: Arthralgias, Back Pain, Fall, Injury (Patient does have multiple ecchymosis on her back and legs. There is one on left mid/lower back that appears to be 8 round 1 cm sideways v shape. Patient stated that the bruises were from her fall and trying to crawl to get herself up. ) Skin: Skin Lesions (Wound L dorsum of foot. ), No Cellulitis Neurological: Gait Changes (Patient ambulates with assistive device), Tremors ( Bilateral hand tremors), No Dizziness, No Headache Psychological: No Alcohol Abuse, No Drug Abuse Hematologic/Lymphatic: Anemia, Other (Unsure if patient has hx of iron def anemia or anemia of chronic disease. She has been mildly anemic in hosp and has hx of vit b12 def. ) Objective Exam General Appearance: moderate distress Neurologic Exam: alert, oriented x 3, cooperative, hard hat diver II-XII nml as tested, abnormal gait, other (depressed mood Patient has bilateral hand tremor), No disoriented, No confusion Skin Exam: warm, dry, abrasion, ecchymosis Wound Assessment: Skin/Wound Assessment Wound/Incision Assessment Start: 07/13/19 01: 51 Text: Status: Active Freq: Q6H Protocol: Document 07/15/19 02:00 AW (Rec: 07/15/19 02:10 AW [id number]) Wound/Incision Assessment Left Foot Wound Assessment Shift Assessment Wound Type Skin Tear Wound Stage Unstageable Dressing Status Dry & Intact Drainage Amount Minimal Drainage Description Serosanguineous Drainage Odor None/Absent General Appearance Clean/Dry Wound Bed Greatest Portion Yellow (Slough) Wound Bed Lesser Portion Shiny Dusky Red Surrounding Tissue Dark Red Topical Solution/Irrigant Saline Irrigant Primary Dressing Non-Adherent Gauze Pads Secondary Dressing Gauze Roll/Wrap Comment dressing CDI, changed per PT Wound Photo Photo Taken Yes Date: 07/12/19 Distance from Wound: bedside Eye Exam: eyes nml inspection, No scleral icterus Ears, Nose, Throat Exam: No dry mucous membranes Neck Exam: No non-tender, No supple, No carotid bruit, No JVD, No lymphadenopathy Respiratory Exam: normal breath sounds, lungs clear, No respiratory distress, No diminished breath sounds, No crackles/rales, No rhonchi, No wheezing Cardiovascular Exam: regular rate/rhythm, murmur (Systolic 2/6 murmur that does not radiate to carotid), No friction rub, No gallop, No tachycardia, No bradycardia, No irregular, No edema Gastrointestinal/Abdomen Exam: normal bowel sounds, No tenderness, No distention , No mass, No guarding Extremity Exam: other (bilateral calf tenderness with palpation. There are ecchymosis on anterior lower extremities) Back Exam: decreased range of motion, point tenderness, other (Tenderness with palpation L lower back and pelvis area. Patient has greater than 10 areas of ecchymosis diffusely spread over her back.) Pelvic Exam: deferred, No vaginal bleeding (No bleeding noted in her depends per nursing staff.) OBJECTIVE DATA Vital Signs: Vital Signs - 24 hr Temp Pulse Resp BP Pulse Ox 07/15/19 07:51 97.8 F 101 H 19 179/77 94 L 07/15/19 07:15 97 H 18 96 07/15/19 04:20 98.1 F 93 H 22 147/81 97 07/14/19 23:50 97.8 F 91 H 20 134/60 95 07/14/19 19:47 97.9 F 96 H 18 142/64 96 07/14/19 19:37 86 20 94 L 07/14/19 16:00 97.5 F 99 H 20 146/65 92 L 07/14/19 15:31 92 H 18 98 07/14/19 12:04 89 20 98 07/14/19 12:00 97.9 F 89 20 129/58 98 Oxygen-Last 24 hours O2 Percentage 4 Liters = 36% O2 Percentage 4 Liters = 36% O2 Percentage 4 Liters = 36% O2 Percentage 4 Liters = 36% O2 Percentage 4 Liters = 36% O2 Percentage 4 Liters = 36% Pain Assessment - Last Documented Pain Intensity 10 Pain Scale Used 0-10 Pain Scale Intake and Output: Intake & Output 07/12/19 07/13/19 07/14/19 07/15/19 11:59 11:59 11:59 11:59 Intake Total 530 1658 2022 Output Total 400 1250 2300 Balance 130 408 -278 Weight 148 kg 71.8 kg Lab Results: Accuchecks Date 07/14/19 Date 07/14/19 Date 07/14/19 Time 22:00 Time 16:30 Time 11:30 Accucheck Value: 235 Accucheck Value: 338 Accucheck Value: 195 Radiology Exams: Radiology Procedures Category Date Time Status ABDOMEN AND PELVIS W/0 CONTRAS [CT] Urgent Exams 07/13/19 09:20 Completed ECHO W/2D AND DOPPLER [US] Routine Exams 07/13/19 12:23 Taken Multi-Disciplinary Progress Notes: Multi-Disciplinary Progress Notes 07/14/19 13:37 Physical Therapy Note by Glenda Duran PT. REPORTS SHE IS FEELING BETTER TODAY. ALERT AND ORIENTED. ON 4 L O2. PERFORMED SUPINE TO SIT W/ MIN ASSIST; SIT TO STAND W/ CGA/SBA. O2 SATS 94% AT REST. PT. AMBULATED ~ 50 ' W/ PORTABLE O2 ON 4L AND DESATURATED TO 85% DURING WALK. INCREASED O2 TO 6 L TO FINISH WALK AND PT. STILL REQUIRED ~2 MINS TO GET BACK ABOVE 90% WHEN SITTING DOWN TO REST. WILL CONT. TO PROGRESS TOLERATED. PT. HAS DIFFICULTY PERFORMING PROPER PURSED LIP BREATHING TECHNIQUE AND REQUIRES FREQUENT CUEING. THIS IS LIMITED BY PULMONARY FUNCITON. PT. HAS HELP AT HOME AND C FOR BOTH SHE AND HER SPOUSE. GLENDA DURAN PT Initialized on 07/14/19 13:37 - END OF NOTE 07/14/19 12:23 Physical Therapy Note by Glenda Duran Nursing requested that PT consult on L foot abrasion/skin tear as well this am. Dressing intact from 07/12. Pt. reports her nebulizer fell of the table onto dorsal foot at home prior to admission. New picture taken and placed in hard chart. Noted serous drainage on dressing. Adherent layer of yellow slough noted in wound bed. Wound measured 2.5 cm L x .9 cm W. Cleansed w/ hibiclens/ sterile water mixture; applied barrier ointment to promote eschar sloughing. Dressed w/ mepiliex lite and applied tubigrip for compression. Will monitor during stay. Dressing can be changed q 2-3 days prn. Glenda Duran PT Initialized on 07/14/19 12:23 - END OF NOTE Assessment/Plan (1) Encephalopathy Current Visit: Yes Status: Acute Assessment & Plan: Patient appears to be improved. Patient initially had pain medication as concern was present that it was a potential cause for her confusion and ams. Patient had CT imaging of head showed age related changes. Unsure etiology of encephalopathy but will monitor patient for confusion following administration of morphine and gabapentin. If patient remains stable overnight with no AMS or confusion will consider discharge to home tomorrow or Wednesday. Code(s): G93.40 - ENCEPHALOPATHY, UNSPECIFIED (2) Left foot pain Current Visit: Yes Status: Acute Assessment & Plan: PT is applying dressings to existing wound that patient has had for the past couple of weeks. No new antibiotics will be given at this time except Rocephin which is being given for her pneumonia. Patient will continue with routine wound care Code(s): M79.672 - PAIN IN LEFT FOOT (3) Low back pain Current Visit: Yes Status: Acute Qualifiers: Back pain laterality: left Sciatica presence: with sciatica Sciatica laterality: bilateral sciatica Assessment & Plan: Chronic in nature but more painful today was in tears overnight and rated pain as 10/10. Patient used to get steroid injections for low back pain in the past. She has not needed them since she started chemo txs. Patient would like to resume steroid injections if possible as an outpatient. Patient is currently being given morphine and gabapentin for the pain. Will try to discharge on gabapentin or lyrica. Will have to monitor patient's ability to tolerate those medications with their neg side effects of sedation and possible confusion. Code(s): M54.5 - LOW BACK PAIN (4) Fall Current Visit: No Status: Acute Assessment & Plan: Patient has multiple ecchymosis on her back. Unsure how patient fell or where the ecchymosis came from. One has a distinct pattern that was concerning. Patient lives with who has parkinsons and has family members and home health that help her. Discussed with patient and case management discussed with patient and family that patient may need to go to [place] for additional care. Patient and family are refusing this at this time. After discharge from hospital if Im concerned about any new falls or injuries I will likely contact adult protective services to see about conducting a home visit to ensure patient is safe and being taken care of appropriately. Code(s): W19.XXXA - UNSPECIFIED FALL, INITIAL ENCOUNTER (5) Anemia Current Visit: Yes Status: Acute Assessment & Plan: Likely anemia of chronic disease as patient has CKD. Patient acutely had KAMILLA as well. Patient did report some black stools but was occult neg. Will consider possible colonoscopy as outpatient. Code(s): D64.9 - ANEMIA, UNSPECIFIED (6) KAMILLA (acute kidney injury) Current Visit: Yes Status: Resolved Assessment & Plan: Patient was likely dehydrated and had KAMILLA on CKD. Her kidney function has improved and her urine output has improved as well. Will continue to manage her CKD Code(s): N17.9 - ACUTE KIDNEY FAILURE, UNSPECIFIED
[2019-07-15 12:14] LABS: Absolute Neutrophil Ct (ANC) 7.64 (1.4-6.9); BASOPHIL % 0.1 % (0.0-0.4); Basophil (Absolute #) 0.01 (0-0.4); Eosinophil % 1.9 % (0.00-5.0); Eosinophil (Absolute #) 0.17 (0-0.5); Hematocrit 28.7 % (35-47); Hemoglobin 8.7 gm/dl (12.0-16.0); Lymphocyte (Absolute #) 0.53 (1.0-4.6); Lymphocytes % 5.8 % (24.0-44.0); Mean Cell Volume 99.7 fl (78-100); Mean Corpuscular Hemoglobin 30.2 pg (26-32); Mean Corpuscular Hgb Concent. 30.3 g/dl (32-36); Mean Platelet Volume 9.3 fl (6-9.5); Monocyte (Absolute #) 0.79 (0.0-1.3); Monocytes % 8.6 % (0.0-12.0); Neutrophil % 83.6 % (36.0-66.0); Platelet Count 126 K/mm3 (150-450); Red Blood Count 2.88 M/mm3 (4.1-5.4); Red Cell Distribution Width 18.7 % (11.5-14.0); White Blood Count 9.1 K/mm3 (4.0-10.5)
[2019-07-15 12:23] LABS: Slide Review 1 YES
[2019-07-15 12:24] LABS: ANION GAP 9.7 MEQ/L (5-15); BLOOD UREA NITROGEN 19 mg/dL (7-17); CHLORIDE 100 mmol/L (98-107); Calcium 8.8 mg/dL (8.4-10.2); Carbon Dioxide 30 mmol/L (22-30); Creatinine 1 0.92 mg/dL (0.52-1.04); Glucose 245 mg/dL (74-106); Potassium 4.7 mmol/L (3.5-5.1); SODIUM 135 mmol/L (137-145)
[2019-07-15] MEDS: NovoLOG Insulin SQ PRN ×3 (13:33→21:20)
[2019-07-15] MEDS: MORPHINE SULFATE 2 MG INJ IV PRN ×2 (14:52→19:36)
[2019-07-15] MEDS: NEURONTIN 300 MG PO SCH ×2 (18:13→20:55)
[2019-07-15] MEDS: REQUIP 2MG TAB PO SCH (21:19)
[2019-07-16] MEDS: MORPHINE SULFATE 2 MG INJ IV PRN ×3 (02:04→19:11)
[2019-07-16] MEDS: TYLENOL 325 MG PO PRN ×2 (03:45→23:50)
[2019-07-16] MEDS: SYNTHROID 50 MCG PO SCH (06:43)
[2019-07-16] MEDS: Advair Hfa 115/21 Common canister IH SCH ×2 (07:20→19:01)
[2019-07-16] MEDS: PROVENTIL 2.5 MG/3 ML NEB IH SCH ×4 (07:20→19:01)
[2019-07-16] MEDS: NovoLOG Insulin SQ SCH ×3 (09:00→17:09)
[2019-07-16] MEDS: ROCEPHIN 1 Gm-D5w 50 ml Bag** 1 G/50 ML IVPB IV SCH (10:21)
[2019-07-16] MEDS: PLAVIX 75 MG Tablet PO SCH (10:21)
[2019-07-16] MEDS: Lexapro 10 MG PO SCH (10:21)
[2019-07-16] MEDS: Calcium 500MG W/Vit D Tablet PO SCH ×2 (10:21→21:30)
[2019-07-16] MEDS: Protonix 40MG Tablet PO SCH (10:22)
[2019-07-16] MEDS: Zestril 10 MG PO SCH (10:22)
[2019-07-16] MEDS: NEURONTIN 300 MG PO SCH ×2 (10:22→21:32)
[2019-07-16] MEDS: DELTASONE 10 MG PO SCH (10:22)
[2019-07-16] MEDS: Lidoderm Patch 5% TOP SCH (10:25)
[2019-07-16 10:33] LABS: Absolute Neutrophil Ct (ANC) 6.02 (1.4-6.9); BASOPHIL % 0.1 % (0.0-0.4); Basophil (Absolute #) 0.01 (0-0.4); Eosinophil % 2.6 % (0.00-5.0); Hematocrit 29.9 % (35-47); Hemoglobin 9.1 gm/dl (12.0-16.0); Lymphocyte (Absolute #) 0.79 (1.0-4.6); Lymphocytes % 10.3 % (24.0-44.0); Mean Cell Volume 100.7 fl (78-100); Mean Corpuscular Hemoglobin 30.6 pg (26-32); Mean Corpuscular Hgb Concent. 30.4 g/dl (32-36); Mean Platelet Volume 9.1 fl (6-9.5); Monocyte (Absolute #) 0.66 (0.0-1.3); Monocytes % 8.6 % (0.0-12.0); Neutrophil % 78.4 % (36.0-66.0); Platelet Count 138 K/mm3 (150-450); Red Blood Count 2.97 M/mm3 (4.1-5.4); Red Cell Distribution Width 18.9 % (11.5-14.0); White Blood Count 7.7 K/mm3 (4.0-10.5)
[2019-07-16 10:38] LABS: ANION GAP 9.7 MEQ/L (5-15); BLOOD UREA NITROGEN 19 mg/dL (7-17); CHLORIDE 98 mmol/L (98-107); Calcium 9.3 mg/dL (8.4-10.2); Carbon Dioxide 31 mmol/L (22-30); Creatinine 1 0.73 mg/dL (0.52-1.04); Glucose 237 mg/dL (74-106); Potassium 4.7 mmol/L (3.5-5.1); SODIUM 134 mmol/L (137-145)
--- NOTE | 2019-07-16 12:27 | PCM.NOTE ---
Date and Time: 07/16/19 1211 Subjective Assessment: 74 yr old female seen and examined this am. Patient reports that she is very short of breath this am following getting up to go the bathroom. Patient reports that she is otherwise doing ok. She reports that her legs feels better than since admission. She denies any other pain anywhere else. - Review of Systems Constitutional: No Fever Eyes: No Symptoms Ears, Nose, & Throat: No Symptoms Respiratory: Short Of Breath, No Cough, No Wheezing Cardiac: No Chest Pain, No Edema Abdominal/Gastrointestinal: No Abdominal Pain, No Nausea, No Vomiting, No Diarrhea, No Constipation Genitourinary Symptoms: No Dysuria, No Frequency, No Hematuria Musculoskeletal: Other (Bilateral leg pain has improved. ) Skin: Other Neurological: No Dizziness, No Headache Objective Exam General Appearance: no apparent distress Neurologic Exam: alert, oriented x 3, cooperative, normal mood/affect Skin Exam: normal color, warm, dry, ecchymosis (on back and lower legs) Wound Assessment: Skin/Wound Assessment Wound/Incision Assessment Start: 07/13/19 01: 51 Text: Status: Active Freq: Q6H Protocol: Document 07/16/19 02:00 EG (Rec: 07/16/19 02:07 EG [id number]) Wound/Incision Assessment Left Foot Wound Assessment Shift Assessment Wound Type Skin Tear Wound Stage Unstageable Dressing Status Dry & Intact Drainage Amount Minimal Drainage Description Serosanguineous Drainage Odor None/Absent General Appearance Clean/Dry Wound Bed Greatest Portion Yellow (Slough) Wound Bed Lesser Portion Shiny Dusky Red Surrounding Tissue Dark Red Topical Solution/Irrigant Saline Irrigant Primary Dressing Non-Adherent Gauze Pads Secondary Dressing Gauze Roll/Wrap Comment dressing CDI, changed per PT, see PT notes Wound Photo Photo Taken Yes Date: 07/12/19 Distance from Wound: bedside Eye Exam: eyes nml inspection Ears, Nose, Throat Exam: moist mucous membranes Neck Exam: normal inspection, non-tender, supple Respiratory Exam: respiratory distress, wheezing, other (short of breath) Cardiovascular Exam: regular rate/rhythm, murmur (systolic), No friction rub, No gallop Gastrointestinal/Abdomen Exam: soft, normal bowel sounds, No tenderness, No distention, No mass, No guarding Extremity Exam: other (Bruising on lower extremities bilaterally decreased pain bilaterally) Back Exam: other (Ecchymosis) OBJECTIVE DATA Vital Signs: Vital Signs - 24 hr Temp Pulse Resp BP Pulse Ox 07/16/19 10:32 97 H 22 90 L 07/16/19 07:32 98 F 90 20 130/66 97 07/16/19 07:29 78 16 95 07/16/19 04:00 98.2 F 98 H 22 135/61 93 L 07/15/19 23:32 98.2 F 88 20 132/64 98 07/15/19 19:50 98.4 F 84 22 140/65 98 07/15/19 18:43 87 20 97 07/15/19 15:42 90 18 95 07/15/19 15:00 128/60 07/15/19 12:37 93 H 20 96 Oxygen-Last 24 hours O2 Percentage 4 Liters = 36% O2 Percentage 4 Liters = 36% O2 Percentage 4 Liters = 36% O2 Percentage 4 Liters = 36% Pain Assessment - Last Documented Pain Intensity 8 Pain Scale Used 0-10 Pain Scale Intake and Output: Intake & Output 07/14/19 07/15/19 07/16/19 07/17/19 11:59 11:59 11:59 11:59 Intake Total 1658 2022 1100 Output Total 1250 2300 2650 Balance 408 278 -1550 Lab Results: Accuchecks Date 07/15/19 Time 17:32 Accucheck Value: 134 Accucheck Value: 217 Accucheck Value: 319 Lab Results-Last 24 Hours 07/15/19 07/15/19 07/15/19 Range/Units 11:59 11:59 12:00 WBC 9.1 (4.0-10.5) K/mm3 RBC 2.88 L (4.1-5.4) M/mm3 Hgb 8.7 L (12.0-16.0) gm/dl Hct 28.7 L (35-47) % MCV 99.7 (78-100) fl MCH 30.2 (26-32) pg MCHC 30.3 L (32-36) g/dl RDW 18.7 H (11.5-14.0) % Plt Count 126 L (150-450) K/mm3 MPV 9.3 (6-9.5) fl Gran % 83.6 H (36.0-66.0) % Eos # (Auto) 0.17 (0-0.5) Absolute Lymphs (auto) 0.53 L (1.0-4.6) Absolute Monos (auto) 0.79 (0.0-1.3) Lymphocytes % 5.8 L (24.0-44.0) % Monocytes % 8.6 (0.0-12.0) % Eosinophils % 1.9 (0.00-5.0) % Basophils % 0.1 (0.0-0.4) % Absolute Granulocytes 7.64 H (1.4-6.9) Basophils # 0.01 (0-0.4) Sodium 135 L (137-145) mmol/L Potassium 4.7 (3.5-5.1) mmol/L Chloride 100 (98-107) mmol/L Carbon Dioxide 30 (22-30) mmol/L Anion Gap 9.7 (5-15) MEQ/L BUN 19 H (7-17) mg/dL Creatinine 0.92 (0.52-1.04) mg/dL Estimated GFR > 60.0 ML/MIN Glucose 245 H (74-106) mg/dL Hemoglobin A1c 6.81 H (4.5-6.0) % Calcium 8.8 (8.4-10.2) mg/dL Slides for Path Review YES 07/16/19 07/16/19 Range/Units 10:18 10:18 WBC 7.7 (4.0-10.5) K/mm3 RBC 2.97 L (4.1-5.4) M/mm3 Hgb 9.1 L (12.0-16.0) gm/dl Hct 29.9 L (35-47) % MCV 100.7 H (78-100) fl MCH 30.6 (26-32) pg MCHC 30.4 L (32-36) g/dl RDW 18.9 H (11.5-14.0) % Plt Count 138 L (150-450) K/mm3 MPV 9.1 (6-9.5) fl Gran % 78.4 H (36.0-66.0) % Eos # (Auto) 0.20 (0-0.5) Absolute Lymphs (auto) 0.79 L (1.0-4.6) Absolute Monos (auto) 0.66 (0.0-1.3) Lymphocytes % 10.3 L (24.0-44.0) % Monocytes % 8.6 (0.0-12.0) % Eosinophils % 2.6 (0.00-5.0) % Basophils % 0.1 (0.0-0.4) % Absolute Granulocytes 6.02 (1.4-6.9) Basophils # 0.01 (0-0.4) Sodium 134 L (137-145) mmol/L Potassium 4.7 (3.5-5.1) mmol/L Chloride 98 (98-107) mmol/L Carbon Dioxide 31 H (22-30) mmol/L Anion Gap 9.7 (5-15) MEQ/L BUN 19 H (7-17) mg/dL Creatinine 0.73 (0.52-1.04) mg/dL Estimated GFR > 60.0 ML/MIN Glucose 237 H (74-106) mg/dL Hemoglobin A1c (4.5-6.0) % Calcium 9.3 (8.4-10.2) mg/dL Slides for Path Review Multi-Disciplinary Progress Notes: Multi-Disciplinary Progress Notes 07/16/19 11:04 Pharmacy Note by Dannie Lucio ANTIMICROBIAL [employer] NOTE PT RECEIVED DAY #4 ROCEPHIN TODAY WBC 7.7 AFEBRILE TAKING PO MEDS DISCUSSED SWITCHING TO CEFTIN 500 MG PO BID WITH DR TALBOT. AGREED CEFTIN 500 MG PO BID TO START 07/17/19 1000 KHAUGER Initialized on 07/16/19 11:04 - END OF NOTE Assessment/Plan (1) Encephalopathy Current Visit: Yes Status: Acute Assessment & Plan: 74 yr old with encephalopathy that has improved since admission. Still unsure etiology. Concern was that her pain meds may have caused the encephalopathy however she has been given morphine and has tolerated well. Patient did have an underling pneumonia on admission which also have been the cause. Patient has received 4 doses of IV rocephin and has now been transitioned to PO. Will continue to monitor for confusion and AMS Code(s): G93.40 - ENCEPHALOPATHY, UNSPECIFIED (2) Left foot pain Current Visit: Yes Status: Acute Assessment & Plan: Will continue with PT and wound care Code(s): M79.672 - PAIN IN LEFT FOOT (3) Low back pain Current Visit: Yes Status: Acute Qualifiers: Back pain laterality: left Sciatica presence: with sciatica Sciatica laterality: bilateral sciatica Assessment & Plan: Patient was not complaining of back pain this am. Will have to decide what to send patient home on for pain management. Plan is for patient to start getting steroid injection. Code(s): M54.5 - LOW BACK PAIN (4) Fall Current Visit: No Status: Acute Assessment & Plan: Patient has not had any falls in hosp. Patient will continue with PT and plan for home health Code(s): W19.XXXA - UNSPECIFIED FALL, INITIAL ENCOUNTER (5) Anemia Current Visit: Yes Status: Acute Assessment & Plan: Anemia of chronic disease and macrocytic anemia. Code(s): D64.9 - ANEMIA, UNSPECIFIED (6) KAMILLA (acute kidney injury) Current Visit: Yes Status: Resolved Assessment & Plan: Resolved will continue to monitor. Code(s): N17.9 - ACUTE KIDNEY FAILURE, UNSPECIFIED
[2019-07-16] MEDS: NovoLOG Insulin SQ PRN ×3 (12:56→21:38)
[2019-07-16] MEDS: Lasix 20 MG/2 ML IV SCH (17:09)
[2019-07-16] MEDS: Compazine 5 MG PO SCH ×2 (19:00→21:40)
[2019-07-16] MEDS: REQUIP 2MG TAB PO SCH (21:30)
[2019-07-17] MEDS: SYNTHROID 50 MCG PO SCH (05:31)
[2019-07-17] MEDS: TYLENOL 325 MG PO PRN (05:32)
[2019-07-17] MEDS: Lidoderm Patch 5% TOP SCH (06:11)
[2019-07-17] MEDS: PROVENTIL 2.5 MG/3 ML NEB IH SCH (06:47)
[2019-07-17] MEDS: Advair Hfa 115/21 Common canister IH SCH (06:47)
[2019-07-17 06:51] VITALS: PULSE 98; O2SAT 91
[2019-07-17 07:25] VITALS: BP 159/63
[2019-07-17] MEDS: NovoLOG Insulin SQ SCH (07:54)
[2019-07-17] MEDS: MORPHINE SULFATE 2 MG INJ IV PRN (08:51)
--- NOTE | 2019-07-17 08:59 | PCM.DS ---
Discharge Summary Date of Admission: 07/14/19 13:37 Admitting Physician: EDILIA TALBOT MD Consults: Consults on Case 07/12/19 18:15 Consult Neurology ROUTINE Primary Care Provider: EDILIA TALBOT MD Allergies Allergies latex Allergy (Mild, Verified 10/03/18 12:51) Itching adhesive Allergy (Verified 10/03/18 12:51) Rash Hospital Summary - Vitals & Intake/Output Vital Signs: Vital Signs Temperature 98.3 F 07/17/19 07:24 Pulse Rate 98 H 07/17/19 07:24 Respiratory Rate 07/17/19 07:24 Blood Pressure 159/63 07/17/19 07:24 O2 Sat by Pulse Oximetry 91 L 07/17/19 07:24 Oxygen-Last Documented O2 Percentage 4 Liters = 36% Intake & Output: Intake & Output 07/14/19 07/15/19 07/16/19 07/17/19 11:59 11:59 11:59 11:59 Intake Total 1658 2022 1100 1250 Output Total 1250 2300 2650 2500 Balance 408 -278 -1550 -1250 - Lab Result Diagrams: 07/16/19 10:18 07/16/19 10:18 Lab Results-Last 24 Hrs: Accuchecks Accucheck Value: 177 Accucheck Value: 217 Accucheck Value: 257 Accucheck Value: 235 Lab Results-Last 24 Hours 07/15/19 07/16/19 07/16/19 Range/Units 12:00 09:56 10:18 WBC 7.7 (4.0-10.5) K/mm3 RBC 2.97 L (4.1-5.4) M/mm3 Hgb 9.1 L (12.0-16.0) gm/dl Hct 29.9 L (35-47) % MCV 100.7 H (78-100) fl MCH 30.6 (26-32) pg MCHC 30.4 L (32-36) g/dl RDW 18.9 H (11.5-14.0) % Plt Count 138 L (150-450) K/mm3 MPV 9.1 (6-9.5) fl Gran % 78.4 H (36.0-66.0) % Eos # (Auto) 0.20 (0-0.5) Absolute Lymphs (auto) 0.79 L (1.0-4.6) Absolute Monos (auto) 0.66 (0.0-1.3) Lymphocytes % 10.3 L (24.0-44.0) % Monocytes % 8.6 (0.0-12.0) % Eosinophils % 2.6 (0.00-5.0) % Basophils % 0.1 (0.0-0.4) % Absolute Granulocytes 6.02 (1.4-6.9) Basophils # 0.01 (0-0.4) Sodium (137-145) mmol/L Potassium (3.5-5.1) mmol/L Chloride (98-107) mmol/L Carbon Dioxide (22-30) mmol/L Anion Gap (5-15) MEQ/L BUN (7-17) mg/dL Creatinine (0.52-1.04) mg/dL Estimated GFR ML/MIN Glucose (74-106) mg/dL Hemoglobin A1c 6.81 H (4.5-6.0) % Calcium (8.4-10.2) mg/dL NT-Pro-B Natriuret Pep 1440 (0-1800) pg/mL 07/16/19 Range/Units 10:18 WBC (4.0-10.5) K/mm3 RBC (4.1-5.4) M/mm3 Hgb (12.0-16.0) gm/dl Hct (35-47) % MCV (78-100) fl MCH (26-32) pg MCHC (32-36) g/dl RDW (11.5-14.0) % Plt Count (150-450) K/mm3 MPV (6-9.5) fl Gran % (36.0-66.0) % Eos # (Auto) (0-0.5) Absolute Lymphs (auto) (1.0-4.6) Absolute Monos (auto) (0.0-1.3) Lymphocytes % (24.0-44.0) % Monocytes % (0.0-12.0) % Eosinophils % (0.00-5.0) % Basophils % (0.0-0.4) % Absolute Granulocytes (1.4-6.9) Basophils # (0-0.4) Sodium 134 L (137-145) mmol/L Potassium 4.7 (3.5-5.1) mmol/L Chloride 98 (98-107) mmol/L Carbon Dioxide 31 H (22-30) mmol/L Anion Gap 9.7 (5-15) MEQ/L BUN 19 H (7-17) mg/dL Creatinine 0.73 (0.52-1.04) mg/dL Estimated GFR > 60.0 ML/MIN Glucose 237 H (74-106) mg/dL Hemoglobin A1c (4.5-6.0) % Calcium 9.3 (8.4-10.2) mg/dL NT-Pro-B Natriuret Pep (0-1800) pg/mL Micro Results-Entire Visit: Microbiology 07/13/19 17:30 Urine Culture - Final Urine, Void <10K NORMAL SKIN TOO PROBABLE SKIN CONTAMINANT 07/12/19 Unknown Urine Culture - Final Urine, Void NO GROWTH Accuchecks Accucheck Value: 177 Accucheck Value: 217 Accucheck Value: 257 Accucheck Value: 235 - Procedures and Test Procedures and Tests throughout Hospitalization: Therapy Orders & Screens 07/12/19 12:36 Respiratory Therapy Assessment DAILY Comment: 07/12/19 12:40 Peak Expiratory Flow Rate ONCE Comment: Reason For Exam: 07/12/19 20:45 Oxygen Nasal Cannula 4 lpm Comment: Diagnosis: altered mental status, with fall and left hip and shoulder and hand sprains Respiratory Therapy Assessment DAILY Comment: Diagnosis: altered mental status, with fall and left hip and shoulder and hand sprains 07/13/19 09:05 PT Eval & Treat (MD Order) ROUTINE Reason for Eval:: Patient was found down at home. She appears to be deconditioned. She requires gait assisted devices and she appears to have new tremor. Diagnosis: altered mental status, with fall and left hip and shoulder and hand sprains 07/14/19 07:39 Peak Expiratory Flow Rate ONCE Comment: Reason For Exam: Diagnosis: altered mental status, with fall and left hip and shoulder and hand sprains Discharge Exam Wound Assessment: Skin/Wound Assessment Wound/Incision Assessment Start: 07/13/19 01: 51 Text: Status: Active Freq: Q6H Protocol: Document 07/17/19 08:00 AR (Rec: 07/17/19 08:31 AR [id number]) Wound/Incision Assessment Left Foot Wound Assessment Shift Assessment Wound Type Abrasion Drainage Amount None Surrounding Tissue Dark Red Comment Healing, no drainage noted, barrier cream applied, stockinette in place Wound Photo Photo Taken Yes Date: 07/12/19 Distance from Wound: bedside Final Diagnosis/Problem List - Final Discharge Diagnosis/Problem (1) Encephalopathy Current Visit: Yes Status: Resolved Code(s): G93.40 - ENCEPHALOPATHY, UNSPECIFIED (2) Left foot pain Current Visit: Yes Status: Acute Code(s): M79.672 - PAIN IN LEFT FOOT (3) Low back pain Current Visit: Yes Status: Acute Code(s): M54.5 - LOW BACK PAIN (4) Fall Current Visit: No Status: Resolved Code(s): W19.XXXA - UNSPECIFIED FALL, INITIAL ENCOUNTER (5) Anemia Current Visit: Yes Status: Acute Code(s): D64.9 - ANEMIA, UNSPECIFIED (6) KAMILLA (acute kidney injury) Current Visit: Yes Status: Resolved Code(s): N17.9 - ACUTE KIDNEY FAILURE, UNSPECIFIED - Discharge Disposition: HOME HEALTH SERVICE Condition: Stable Prescriptions: No Action PANTOPRAZOLE 40 mg Tablet [Protonix 40MG Tablet] 40 mg PO DAILY Escitalopram Oxalate [Lexapro] 20 mg PO DAILY Clopidogrel Bisulfate 75 mg [PLAVIX 75 MG Tablet] 0.5 tab PO DAILY Prednisone 10 mg [Deltasone 10 mg] 10 mg PO DAILY Lisinopril 10 mg PO DAILY Insulin Lispro [Humalog] 4 unit SQ AC Cyanocobalamin 1000 Mcg/ml [Cyanocobalamin B-12 1000 MCG/ML] 1,000 mcg IJ UD Calcium Carbonate/Vitamin D3 [Calcium 600 + Vit D Tablet] 1 each PO BID Alprazolam 1 mg [Xanax 1 mg] 1 mg PO BID PRN Albuterol 2.5 mg/3 ml Neb [Proventil 2.5 mg/3 ml Neb] 2.5 mg IH QID Cranberry Extract [Cranberry] 500 mg PO BID Loperamide HCl 2 mg [Imodium 2 mg] 2 mg PO UD Levothyroxine Sodium 50 Mcg [Synthroid 50 Mcg] 50 mcg PO DAILY Prochlorperazine Maleate 10 mg [Compazine 10 mg] 10 mg PO BID Ropinirole HCl 1 mg PO HS Nonformulary 1 tab PO Q6H PRN PRN PRN Reason: back pain Follow up with: EDILIA TALBOT MD [Primary Care Provider] - 1 Week
[2019-07-17] MEDS: Lasix 20 MG/2 ML IV SCH (09:38)
[2019-07-17] MEDS: Calcium 500MG W/Vit D Tablet PO SCH (09:39)
[2019-07-17] MEDS: Lexapro 10 MG PO SCH (09:40)
[2019-07-17] MEDS: DELTASONE 10 MG PO SCH (09:40)
[2019-07-17] MEDS: Compazine 5 MG PO SCH (09:40)
[2019-07-17] MEDS: NEURONTIN 300 MG PO SCH (09:41)
[2019-07-17] MEDS: PLAVIX 75 MG Tablet PO SCH (09:41)
[2019-07-17] MEDS: Zestril 10 MG PO SCH (09:42)
[2019-07-17] MEDS: Protonix 40MG Tablet PO SCH (09:42)
[2019-07-17] MEDS ORDERED: CEFTIN 500 MG PO SCH (10:00)
[2019-07-17] MEDS ORDERED: Klor Con 10 MEQ PO SCH (10:00)
== END 2019-07-17 11:00 | disposition home health service (06) | DRG 70 ==
LOC: ED 10:22 → MED SURG 18:10 → OBSVTOIN 07-14 13:37
PROVIDERS: ADMIT Family Medicine; ATTEND Family Medicine
DX: G93.40 Encephalopathy, unspecified (principal); J18.9 Pneumonia, unspecified organism; N17.9 Acute kidney failure, unspecified; M79.672 Pain in left foot; M54.5 Low back pain; D64.9 Anemia, unspecified; W19.XXXA Unspecified fall, initial encounter; S43.402A Unspecified sprain of left shoulder joint, initial encounter; I83.025 Varicose veins of left lower extremity with ulcer other part of foot; L97.529 Non-pressure chronic ulcer of other part of left foot with unspecified severity; S73.102A Unspecified sprain of left hip, initial encounter; R53.81 Other malaise; R53.1 Weakness; J44.9 Chronic obstructive pulmonary disease, unspecified; E11.9 Type 2 diabetes mellitus without complications; R42 Dizziness and giddiness; Z79.01 Long term (current) use of anticoagulants; Z79.899 Other long term (current) drug therapy; R19.7 Diarrhea, unspecified
CPT/HCPCS: 36415; 70450; 72131; 73030; 73522; 73552; 73630; 74176; 80048; 81001; 82270; 82550; 82962; 83036; 83605; 83880; 84443; 85025; 85027; 87086; 93306; 94150; 94640; 94760; 97162; 97530; 99285; G0378; J0696; J1642; J1940; J2270; J3420; J7609; A9270-GY